=== PATIENT | female | born 1935 | race Caucasian/White ===

== ENCOUNTER 2016-10-02 13:54 | Emergency (ER) | payer OTHER, BC ==
[2016-10-02 14:04] VITALS: BP 147/70; PULSE 70; TEMP 97.4; BMI 27.4
--- NOTE | 2016-10-02 17:38 | PDOC ---
History of Present Illness - General Chief Complaint: Pain Stated Complaint: PAIN Time Seen by Provider: 10/02/16 14:51 History Source: Patient Exam Limitations: No Limitations - History of Present Illness Initial Comments: 10/02/16 17:33 CC progressive pain to left lateral calf x 3 days; no new traum; long hx problem with l hip and knee Timing/Duration: 1 week Severity: moderate Associated Symptoms: denies: chest pain, cough, nausea/vomiting, rash, shortness of breath Past History - Past Medical History Allergies/Adverse Reactions: Allergies Allergy/AdvReac Type Severity Reaction Status Date / Time Penicillins Allergy Rash Verified 10/02/16 14:04 Home Medications: Ambulatory Orders Al[place]ren Hemifumarate [Tekturna -] 150 mg PO DAILY 10/02/16 Atorvastatin Ca [Lipitor] 20 mg PO HS 10/02/16 Doxazosin Mesylate [Cardura] 1 mg PO DAILY 10/02/16 Levothyroxine [Synthroid -] 100 mcg PO DAILY 10/02/16 Metoprolol Succinate [Toprol Xl -] 50 mg PO DAILY 10/02/16 Pantoprazole Sodium 40 mg PO DAILY 10/02/16 Valsartan/Hydrochlorothiazide [Valsartan-Hctz 320-25 mg Tab] 1 each PO DAILY 09/17 GI Disorders: Yes (ACID REFLUX) HTN: Yes Thyroid Disease: Yes - Psycho/Social/Smoking Cessation Hx Anxiety: No Suicidal Ideation: No Smoking History: Never smoked Hx Alcohol Use: No Drug/Substance Use Hx: No Substance Use Type: None Review of Systems - Review of Systems Constitutional: No: Symptoms Reported, Chills, Fever, Malaise HEENTM: No: Symptoms Reported Respiratory: No: Symptoms reported, Cough, Shortness of Breath, SOB with Exertion, Wheezing Musculoskeletal: Yes: Muscle Pain. No: Joint Pain, Joint Swelling, Joint Stiffness Integumentary: No: Symptoms Reported, Erythema, Lesions Neurological: No: Symptoms reported *Physical Exam - Vital Signs Last Vital Signs Temp Pulse Resp BP Pulse Ox 97.4 F L 70 20 147/70 98 10/02/16 13:58 10/02/16 13:58 10/02/16 13:58 10/02/16 13:58 10/02/16 13:58 - Physical Exam General Appearance: Yes: Appropriately Dressed. No: Apparent Distress HEENT: positive: TMs Normal, Pharynx Normal Respiratory/Chest: positive: Lungs Clear. negative: Chest Tender Cardiovascular: positive: Regular Rhythm, Regular Rate. negative: Murmur Integumentary: positive: Normal Color, Dry, Warm, Other (mild STS to left calf; no redness; no skin breaks, no lesions). negative: Cyanotic, Erythema, Ecchymosis, Bruising Neurologic: positive: Other (N/V intact) ED Treatment Course - RADIOLOGY Radiology Studies Ordered: Category Date Time Status LEG TIB/FIB-LEFT [RAD] Stat Radiology 10/02/16 15:05 Completed DUPLEX VASCUL US-1 LEG [US] Stat Ultrasound 10/02/16 15:07 Completed Medical Decision Making - Medical Decision Making 10/02/16 17:37 will refer to local MD this week; xray notes no fxs; US= no DVT/ bakers cyst *DC/Admit/Observation/Transfer Diagnosis at time of Disposition: Pain of left calf - Discharge Dispostion Disposition: HOME Condition at time of disposition: Stable Admit: No - Patient Instructions Additional Instructions: Please follow up with local MD this week
== END 2016-10-02 17:41 | disposition home or self-care (01) ==
LOC: JERFT 13:54
DX: M79.662 Pain in left lower leg (principal); G89.29 Other chronic pain; K21.9 Gastro-esophageal reflux disease without esophagitis; I10 Essential (primary) hypertension; E07.9 Disorder of thyroid, unspecified
CPT/HCPCS: 73590-TC-LT; 93971-TC; 99281-25

== ENCOUNTER 2017-06-04 06:41 | Day surgery (SDC) | payer OTHER, BC ==
[2017-06-02 10:42] VITALS: BMI 27.4
--- NOTE | 2017-06-02 10:55 | HP ---
DATE OF ADMISSION: 06/04/2017 DATE OF SURGERY: 06/04/2017 REASON FOR ADMISSION: Left inguinal hernia. BRIEF HISTORY: This is an 81-year-old female whose history dates back approximately 2 years when she had her left hip replaced. Following that operation, it did not go well according to the patient, and she has had chronic left hip pain. She has been to various physical therapy programs, and it has gotten better. However, she still has the discomfort, and it does limit her to some degree on the left side. She ultimately underwent a CAT scan of the pelvis without contrast performed at [facility]. The CT demonstrated no evidence of loosening or periprosthetic fractures. Incidental finding is bilateral inguinal hernias, left containing large bowel without evidence of obstruction. Because of this finding, the patient did not note any acute pain but was aware that she had occasional discomfort in the left groin region. She also notices now a lump in the left groin which occasionally causes her discomfort. She has had no nausea. No vomiting. No change in bowel habits. PAST MEDICAL HISTORY: Significant for hypertension, hypercholesterolemia. She has reflux disease, hypothyroidism. PAST SURGICAL HISTORY: She has had several cesareans, and she has had a hysterectomy in 1983. She has had her hip replaced on the right in 2012. The one on the left was in 2014. She has had cataract surgery in the early . ALLERGIES: PENICILLIN. MEDICATIONS: 1. Valsartan. 2. Metoprolol. 3. Spironolactone. SOCIAL HISTORY: Patient does not smoke or drink. PHYSICAL EXAMINATION: Lungs: Clear. Heart: Regular rate and rhythm. Abdomen: Soft, nontender, nondistended. She has a very well-healed Pfannenstiel scar. There is no evidence of herniation in the Pfannenstiel scar. However, the exam is very limited due to the patient's body habitus. She is fairly chubby in the groin region and lower abdomen. On the left side, in the supine position, there is a protrusion that is appreciated with Valsalva maneuvers close to the pubic tubercle, which would be consistent with the CT finding of her left inguinal hernia. There is no such contralateral finding on the right side. There is no pubic tubercle tenderness bilaterally. She has no point tenderness in either groin. No obvious adenopathy. IMPRESSION/PLAN: Bilateral inguinal hernias. This is an 81-year-old female who has chronic left hip pain which she underwent a CT scan of the abdomen and pelvis for. The CT demonstrated 2 inguinal hernias. However, the one on the left was larger and contained large bowel without evidence of obstruction. The hernia on the left is palpable on physical examination, and based on her history, she is symptomatic from this. We have discussed the pros and cons of performing a laparoscopic versus open procedure, and given her history of previous C-sections and hysterectomy via Pfannenstiel, I think she is not a very good candidate for a laparoscopic approach (in a TEP fashion) and would require a TAAP (transabdominal approach). Reviewing this patient's age and her symptoms, I think she is best approached not laparoscopically, but actually in an open fashion and addressing only the left which is clinically palpable. The left hernia should be repaired in an open fashion primarily, and if at the time of surgery her inguinal floor is completely frayed, I will then use mesh. I will try my best not to place any mesh in this 81-year-old patient. The indications, alternatives, and complications of the various procedures have been discussed at length. Questions have been answered, and the patient understands especially that if we do this in an open fashion without mesh, her recurrence rates are higher. However, that is not necessarily a bad thing, and she would avoid issues with potential mesh complications. She understands very clearly and wants to proceed. YUKI VICENTE M.D. [id number] cc: Wilber Tang MD, phone number [phone] Dr. Sullivan, phone number [phone]
[2017-06-04] MEDS ORDERED: BUPIVACAINE HCL/PF 0.5% (5MG/ML) 10 ML VIAL ONE (07:23)
[2017-06-04] MEDS ORDERED: ROPIVACAINE HCL 0.5% 30ML VIAL ONE (07:55)
[2017-06-04] MEDS ORDERED: ceFAZolin SODIUM 1 GM VIAL ONE (07:55)
[2017-06-04] MEDS ORDERED: MIDAZOLAM HCL 2 MG/2 ML SINGLE DOSE VIAL ONE ×3 (07:56→08:17)
[2017-06-04] MEDS ORDERED: PROPOFOL 20 ML ONE ×2 (08:17→09:09)
[2017-06-04] MEDS ORDERED: LIDOCAINE HCL/PF 2% SDV 5ML VIAL ONE (08:19)
[2017-06-04] MEDS ORDERED: ceFAZolin SODIUM 1 GM VIAL IVPB ONE (09:04)
[2017-06-04] MEDS ORDERED: oxyCODONE HCL 5 MG TABLET PO PRN ×2 (09:06)
[2017-06-04] MEDS ORDERED: ONDANSETRON 4 MG/2 ML VIAL IVPUSH PRN (09:06)
[2017-06-04] MEDS ORDERED: LIDOCAINE HCL 1%, 10 MG/ML (50 mL VIAL) IJ ONE (09:11)
[2017-06-04] MEDS ORDERED: LACTATED RINGERS SOLUTION 1,000 ML IV SCH (09:15)
[2017-06-04] MEDS ORDERED: SODIUM CHLORIDE 0.9% P/F 10 ML VIAL IJ ONE (10:08)
[2017-06-04] MEDS ORDERED: ePHEDrine SULFATE 50 MG/1 ML AMPULE ONE (10:08)
[2017-06-04] MEDS ORDERED: ONDANSETRON 4 MG/2 ML VIAL ONE ×2 (11:19→11:20)
--- NOTE | 2017-06-04 11:23 | OP ---
DATE OF OPERATION: 06/04/2017 PREOPERATIVE DIAGNOSIS: Left inguinal hernia. POSTOPERATIVE DIAGNOSIS: Left inguinal hernia. PROCEDURE: Open repair left inguinal hernia with 8-cm intermediate closure, hernia repaired with mesh. SURGEON: Suleman Vicente MD HYDROELECTRIC PLANT OPERATOR: David Gomez DO ANESTHESIA: Mohamud Lee MD (MAC/1% lidocaine without epinephrine, approximately 20 mL). ESTIMATED BLOOD LOSS: Minimal. SPECIMENS: Round ligament and hernia sac. INDICATIONS/PROCEDURE: This is an 81-year-old female symptomatic from a left inguinal hernia. CT consistent with bowel in the left inguinal hernia. She is here for operative repair. Patient was identified and appropriately positioned on the operating room table. After good IV sedation, the area was prepped and draped in the usual sterile fashion with ChloraPrep. Lidocaine 1% without epinephrine was used for anesthesia, approximately 20 mL. An 8-cm incision overlying the right inguinal region was made deep in the subcutaneous tissue. Scarpas was divided sharply. The fascia of the external oblique opened in the direction of its fibers. The ilioinguinal nerve identified and noted to be very atrophic. It was reflected laterally. The round ligament and hernia was isolated at the pubic tubercle. The round ligament was from the hernia sac. This patient clearly had an indirect inguinal hernia. The round ligament was clamped, divided, and handed off as specimen round ligament. The sac opened. Patient noted to have a slider. Sac was then oversewn and closed down to the level of the sliding component. The sac was then excised, and the sac reduced back into the preperitoneal space. A Marlex mesh plug was placed into the preperitoneal space and floor and anchored with interrupted 0 Prolene sutures. The inguinal floor reconstructed in 2 layers of running 2-0 Prolene suture, and the conjoint tendon, the oblique musculature overlying the inguinal floor was then reapproximated to the inferior edge of the inguinal ligament with interrupted 0 Prolene sutures. The space irrigated. The operative field was examined, noted to be hemostatic. The inguinal nerve returned to its anatomic position. The fascia of the external oblique reapproximated with running 3-0 Vicryl suture, and all skin closed with Biosyn followed by Dermabond. At the conclusion of this case, sponge and instrument counts were correct. ATTESTATION: Brief operative note handwritten on the preprinted form. [facility] queried prior to giving any narcotics. SULEMAN VICENTE M.D. [id number] cc: Wilber Tang MD, and Dr. Jessy CAN
[2017-06-04 11:45] VITALS: TEMP 97.8
[2017-06-04 11:57] VITALS: BP 148/75; PULSE 73
[2017-06-04] MEDS ORDERED: oxyCODONE HCL 5 MG TABLET ONE (12:46)
--- NOTE | 2017-06-05 15:19 | PATH ---
Surgical Pathology Report Patient Name: ISIDRO CHAUHAN [facility]. Rec. #: [id number] /Age/Gender: 1935 (Age: 81) / F Account: [id number] Location: [facility] Taken: 06/04/2017 Received: 06/04/2017 Reported: 06/05/2017 Physicians: Suleman Storm Specimen(s) Received A: HERNIA SAC B: ROUND LIGAMENT Clinical History Left inguinal hernia Final Diagnosis A. DESIGNATED HERNIA SAC, EXCISION: PORTIONS OF BLOOD VESSEL, PERIPHERAL NERVE, AND SMOOTH MUSCLE CONSISTENT WITH PORTIONS OF ROUND LIGAMENT. B. DESIGNATED ROUND LIGAMENT, EXCISION: FIBROMEMBRANOUS TISSUE CONSISTENT WITH HERNIA SAC. Electronically Signed Chapito Núñez M.D. Gross Description A. Received in formalin labeled "hernia sac," is a 2.5 x 2.5 x 0.4 cm pagan-pink, irregular portion of fibromembranous tissue with minimal attached fat and blood clot. The specimen is serially sectioned and entirely submitted in one cassette. B. Received in formalin labeled "round ligament," is a 2.8 x 1.4 x 0.8 cm irregular portion of fibromembranous tissue with attached fat. No definite ligament is identified. The specimen is serially sectioned and branch service representative sections are submitted in one cassette. 06/04/201706/04/2017
== END 2017-06-04 14:00 | disposition home or self-care (01) ==
LOC: JASU-SURG 06:41
PROVIDERS: ATTEND Surgery
PROC: 0YU60JZ Supplement Left Inguinal Region with Synthetic Substitute, Open Approach (ICD-10-PCS; principal; 2017-06-04 09:00)
DX: K40.90 Unilateral inguinal hernia, without obstruction or gangrene, not specified as recurrent (principal)
CPT/HCPCS: 88302-TC; 94760

== ENCOUNTER 2017-09-23 06:59 | Day surgery (SDC) | payer OTHER, BC ==
[2017-09-22 12:11] VITALS: BMI 27.1
[2017-09-23 08:24] VITALS: TEMP 97.5
[2017-09-23 09:56] VITALS: BP 140/60; PULSE 58
--- NOTE | 2017-09-24 11:31 | PATH ---
Surgical Pathology Report Patient Name: ISIDRO CHAUHAN [facility]. Rec. #: [id number] /Age/Gender: 1935 (Age: 81) / F Account: [id number] Location: [facility] Taken: 09/23/2017 Received: 09/23/2017 Reported: 09/24/2017 Physicians: Lonnie Jolley M.D. Specimen(s) Received BX MID ESOPHAGUS Clinical History Preoperative diagnosis: Dysphagia Postoperative diagnosis: Cricopharyngeal achalasia Final Diagnosis MID ESOPHAGUS, BIOPSY: SQUAMOUS MUCOSA WITH FOCAL MILD VASCULAR CONGESTION. Electronically Signed Deepthi Hawkins M.D. Gross Description Received in formalin, labeled "biopsy midesophagus" are 2 apgan, irregular portions of soft tissue measuring 0.3 and 0.4 cm. in greatest dimension. The specimens are submitted in toto in one cassette. /09/23/201709/23/2017
== END 2017-09-23 10:15 | disposition home or self-care (01) ==
LOC: JASU-ENDO 06:59
PROVIDERS: ATTEND Internal Medicine Gastroenterology
PROC: 0DB28ZX Excision of Middle Esophagus, Via Natural or Artificial Opening Endoscopic, Diagnostic (ICD-10-PCS; 2017-09-23)
PROC: 0D738ZZ Dilation of Lower Esophagus, Via Natural or Artificial Opening Endoscopic (ICD-10-PCS; principal; 2017-09-23 08:00)
DX: R13.10 Dysphagia, unspecified (principal); K22.2 Esophageal obstruction; K44.9 Diaphragmatic hernia without obstruction or gangrene

== ENCOUNTER 2019-10-07 15:18 | Inpatient (IN) | payer OTHER, BC ==
--- NOTE | 2019-10-07 16:21 | PDOC ---
History of Present Illness - General Chief Complaint: Weakness Stated Complaint: DIFFICULTY WALKING Time Seen by Provider: 10/07/19 16:07 - History of Present Illness Initial Comments: 10/07/19 16:29 Pt is an 83y/o female with HTN, hypothyroidism, and b/l hip replacements who presents with difficulty walking and HTN. She was started on Cymbalta on 10/02/19 for b/l foot paresthesias (worse on left). She reports not feeling well after taking it and took the next day off. She resumed for 2 days and felt nauseous with loss of appetite and felt weak on her left side. She was seen in the ED with elevated BP and was discharged. She continued to feel bad and today felt generalized weakness to the point she was unable to walk. She denies LOC, dizziness, chest pain, shortness of breath. Pt was hyponatremic at previous visit 124. She also reports recently being on Lasix for 1 month and stopped in the last 1-2 weeks. cards: Kitty neuro: Joie Past History - Past Medical History Allergies/Adverse Reactions: Allergies Allergy/AdvReac Type Severity Reaction Status Date / Time Penicillins Allergy Rash Verified 10/07/19 15:45 Home Medications: Ambulatory Orders Metoprolol Succinate [Toprol XL -] 50 mg PO BID 10/02/16 Levothyroxine [Synthroid -] 100 mcg PO DAILY 06/02/17 Duloxetine HCl [Cymbalta -] 20 mg PO DAILY 10/05/19 Famotidine 20 mg PO DAILY 10/05/19 Hydralazine HCl 10 mg PO BID 10/05/19 Magnesium Malate 2 gm PO DAILY 10/05/19 Telmisartan 80 mg PO DAILY 10/05/19 Anemia: No Asthma: No Cancer: No Cardiac Disorders: No CVA: No COPD: No CHF: No Dementia: No Diabetes: No GI Disorders: Yes (GERD) Disorders: No HTN: Yes Hypercholesterolemia: Yes Liver Disease: No Seizures: No Thyroid Disease: Yes (HYPOTHYROID) - Surgical History Abdominal Surgery: Yes (HERNIA REPAIR 2017) Orthopedic Surgery: Yes (ELI HIP REPLACEMENT-CAN'T LIFT LEFT LEG) - Psycho Social/Smoking Cessation Hx Smoking History: Unknown if ever smoked Hx Alcohol Use: No Drug/Substance Use Hx: No Substance Use Type: None Hx Substance Use Treatment: No Review of Systems - Review of Systems Constitutional: Yes: Loss of Appetite. No: Diaphoresis Respiratory: No: Shortness of Breath Cardiac (ROS): No: Chest Pain ABD/GI: Yes: Nausea. No: Vomiting Neurological: Yes: Weakness, Dizziness. No: Headache *Physical Exam - Vital Signs Last Vital Signs Temp Pulse Resp BP Pulse Ox 98.2 F 84 18 195/85 H 98 10/07/19 15:20 10/07/19 15:20 10/07/19 15:20 10/07/19 15:20 10/07/19 15:20 - Physical Exam General Appearance: Yes: Nourished, Appropriately Dressed. No: Apparent Distress HEENT: positive: EOMI, THALIA Neck: positive: Trachea midline Respiratory/Chest: positive: Lungs Clear Cardiovascular: positive: Regular Rhythm, Regular Rate. negative: Murmur Gastrointestinal/Abdominal: positive: Increased Bowel Sounds. negative: Tender Extremity: positive: Swelling (b/l feet) Neurologic: positive: aadc plans staff officer II-XII NML intact, Fully Oriented, Alert, Normal Mood/ Affect, Other (left LE 3/5 knee flexion/extension, dorsal and plantar flexion; other extremities 5/5 strength) ED Treatment Course - LABORATORY CBC & Chemistry Diagram: 10/09/19 08:25 10/09/19 06:00 Medical Decision Making - Medical Decision Making 10/07/19 16:44 Pt is an 83y/o female with HTN, hypothyroidism, and b/l hip replacements who presents with difficulty walking and HTN. She was started on Cymbalta on 10/02/19 for b/l foot paresthesias (worse on left). She reports not feeling well after taking it and took the next day off. She resumed for 2 days and felt nauseous with loss of appetite and felt weak on her left side. She was seen in the ED with elevated BP. ddx: TIA, stroke, neuropathy, hypertensive urgency, acute CHF exacerbation, hyper/hypothyroidism orders: CBC, CMP, PT/PTT, trop, TSH, CXR, EKG, CT head 10/07/19 17:51 CBC unremarkable 10/07/19 18:24 Na 123 (124 2 days ago, no baseline in system to compare to)- could be cause of weakness transaminitis and elevated CK, normal trop TSH 5.83 Discharge - Discharge Information Problems reviewed: Yes Clinical Impression/Diagnosis: Hyponatremia, Inability to ambulate due to ankle or foot Condition: Stable - Follow up/Referral - Patient Discharge Instructions - Post Discharge Activity
--- NOTE | 2019-10-07 16:35 | PDOC ---
Attending Attestation - Resident Resident Name: MagalyivonneSanam sher - ED Attending Attestation I have performed the following: I have examined & evaluated the patient, The case was reviewed & discussed with the resident, I agree w/resident's findings & plan, Exceptions are as noted - HPI HPI: 10/07/19 18:44 83yo female with b/l leg weakness that has been worsening for the last week, unable to ambulate today. Pt was started on Cymbalta Friday and didn't like the feel of the cymbalta. Pt was seen 2 days ago because of hte side effects and dc to home. Today pt with generalized weakness. Pt denies cp/sob. No cough. No abd pain. No n/v/d. No dysuria. Pt with LE swelling - has been off lasix for a few days- only had a month of lasix therapy for LE swelling. PMD. Dr Sullivan and Cards Dr. Tang and Neuro Dr. Salter. - Physicial Exam PE: 10/07/19 18:48 Gen: aaox3, nad heart: +s1s2 reg lungs: cta b/l abd: soft, nt/nd +bs ext: 2+ pitting edema to b/l LE, pulses intact neuro: cn ii-xii grossly intact, 4/5 weakness to b/l LE, muscle strength 5/5 UE , sensation intact - Medical Decision Making 10/07/19 18:53 a/p: 83yo female with generalized weakness, inability to ambulate, poss polypharmacy/adverse drug reaction -pt with an adverse drug reaction earlier this week to cymbalta -pt with worsening LE edema and weakness -no f/c -had borderline low sodium 2 days ago to 126 -will repeat labs, head ct, ekg, cxr -pt will most likely need admission for bp control and hyponatremia treatment 10/07/19 18:57 repeat sodium 123 pt will need admission 10/07/19 19:03 nighttime bp meds given 10/07/19 19:[address] neg 10/07/19 19:21 resident discussed the case with doc covering teri Heart Score/ECG Review - ECG Intrepretation Comment:: 10/07/19 19:05 sinus at 74, nl axis, q waves inferior leads which are age indeterminate, q waves anterior leads which are age indeterminate, abnl ekg
[2019-10-07 17:22] LABS: BASO % 0.7 % (0-2.0); EOS % 0.8 % (0-4.5); HEMATOCRIT 36.8 % (32.4-45.2); HEMOGLOBIN 12.9 GM/dL (10.7-15.3); LYMPH % 13.6 % (8-40); MCH 31.2 pg (25.7-33.7); MCHC 35.1 g/dl (32.0-36.0); MEAN CELL VOLUME 88.9 fl (80-96); MEAN PLT VOLUME 11.2 fl (7.5-11.1); MONO % 10.9 % (3.8-10.2); PLATELET COUNT 209 K/MM3 (134-434); RBC 4.14 M/mm3 (3.60-5.2); RDW 13.4 % (11.6-15.6); WHITE BLOOD COUNT 9.1 K/mm3 (4.0-10.0)
[2019-10-07 17:35] LABS: INR 0.86 (0.83-1.09); PROTHROMBIN TIME (PATIENT) 10.1 SEC (9.7-13.0)
[2019-10-07 17:37] LABS: ACTIVATED PTT 30.3 SECONDS (25.2-36.5)
[2019-10-07 17:59] LABS: BILIRUBIN,TOTAL 0.6 mg/dL (0.2-1); BLOOD UREA NITROGEN 17.1 mg/dL (7-18); MAGNESIUM 2.4 mg/dL (1.8-2.4); TOT PROT 7.6 g/dl (6.4-8.2)
[2019-10-07 18:49] LABS: N-TERMINAL BNP 701.2 pg/ml (5-450)
--- NOTE | 2019-10-07 19:01 | PDOC ---
*Physical Exam - Vital Signs Last Vital Signs Temp Pulse Resp BP Pulse Ox 98.2 F 74 16 202/86 H 98 10/07/19 15:20 10/07/19 17:05 10/07/19 17:05 10/07/19 17:05 10/07/19 17:05 - Physical Exam General Appearance: Yes: Nourished, Appropriately Dressed. No: Apparent Distress HEENT: positive: EOMI, THALIA, Normal ENT Inspection, Normal Voice Neck: positive: Supple Respiratory/Chest: positive: Lungs Clear Cardiovascular: positive: Regular Rhythm, Regular Rate, S1, S2 Vascular Pulses: Dorsalis-Pedis (R): 2+, Doralis-Pedis (L): 2+ Gastrointestinal/Abdominal: positive: Soft Rectal Exam: positive: deferred Lymphatic: negative: Adenopathy Musculoskeletal: positive: Normal Inspection. negative: CVA Tenderness Extremity: positive: Normal Capillary Refill, Pedal Edema (1+ ). negative: Normal Inspection, Normal Range of Motion Integumentary: positive: Normal Color, Dry, Warm Neurologic: positive: menagerie superintendent II-XII NML intact, Fully Oriented, Alert, Normal Mood/ Affect, Normal Response ED Treatment Course - LABORATORY CBC & Chemistry Diagram: 10/07/19 16:30 10/07/19 16:30 - ADDITIONAL ORDERS Additional order review: Laboratory Results 10/07/19 10/07/19 10/07/19 16:30 16:30 16:30 PT with INR 10.10 INR 0.86 PTT (Actin FS) 30.3 Sodium 123 L Potassium 4.0 Chloride 87 L Carbon Dioxide 25 Anion Gap 10 BUN 17.1 Creatinine 1.0 Est GFR (CKD-EPI)AfAm 59.91 Est GFR (CKD-EPI)NonAf 51.69 Random Glucose 115 H Calcium 10.0 Magnesium 2.4 Total Bilirubin 0.6 AST 40 H ALT 45 Alkaline Phosphatase 162 H Creatine Kinase 254 H Creatine Kinase Index 1.8 CK-MB (CK-2) 4.7 H Troponin I < 0.02 B-Natriuretic Peptide 701.2 H Total Protein 7.6 Albumin 4.0 TSH 5.83 H 10/07/19 16:30 RBC 4.14 MCV 88.9 MCHC 35.1 RDW 13.4 MPV 11.2 H Neutrophils % 74.0 Lymphocytes % 13.6 Monocytes % 10.9 H Eosinophils % 0.8 Basophils % 0.7 - Medications Given in the ED: ED Medications Discontinued Medications Generic Name Dose Route Start Last Admin Trade Name Erikq PRN Reason Stop Dose Admin Metoprolol Succinate 50 mg 10/07/19 18:50 10/07/19 18:58 Toprol Xl - PO 10/07/19 18:51 50 mg ONCE ONE Administration Medical Decision Making - Medical Decision Making - Patient was sent to hospital by Dr. Salter Patient signed out to me from Dr. Nesbitt pending CXR and admission to hospital for hyponatremia correction and new onset inability to ambulate Sodium: 124 Dr. De Jesus accepts patient for admission Discharge - Discharge Information Problems reviewed: Yes Clinical Impression/Diagnosis: Hyponatremia, Inability to ambulate due to ankle or foot Condition: Stable - Admission Yes - Follow up/Referral Referrals: Erin Sullivan [Primary Care Provider] - - Patient Discharge Instructions - Post Discharge Activity
--- NOTE | 2019-10-07 20:23 | HP ---
Admitting History and Physical - Admission Chief Complaint: Acute difficulty in walking, acute generalized muscle weakness , acute paresthesia of both feet. History of Present Illness: This 83 yr old w/f with hx of HTN, hypothyroidism, s/p bilateral hip replacement , s/p total hysterectomy with bilateral salpingo-oophorectomy, left inguinal hernia repair admitted via ER with acute hyponatremia, acute difficulty in walking, acute generalized muscle weakness, and paresthesias of both feet. 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) Cardiovascular: No: AFIB, Aneurysm, Aortic Insufficiency, Aortic Stenosis, CAD, CHF, Deep Vein Thrombosis, HTN, Hyperlipdemia, [place], Mitral Insufficiency, Mitral Stenosis, Murmur, Pulmonary Hypertension, Other Pulmonary: No: Asthma, Bronchitis, Cancer, COPD, O2 Dependent, Pneumonia, Previously Intubated, Pulmonary Embolus, Pulmonary Fibrosis, Sleep Apnea, Other Gastrointestinal: Yes: Gastritis Hepatobiliary: No: Cirrhosis, Cholelithiasis, Cholecystitis, Choledocholithiasis , Hepatitis A, Hepatitis B, Hepatitis C, Other Renal/: No: Renal Failure, Renal Inusuff, BPH, Cancer, Hematuria, Hemodialysis , Neurogenic Bladder, Renal Calculi, UTI, Other Reproductive: Yes: Fibroids Heme/Onc: No: Anemia, B12 Deficiency, Bleeding Disorder, Cancer, Current Chemotherapy, Current Radiation Therapy, Hemochromatosis, Hypercoaguable State, Myeloproliferative Synd, Sickle Cell Disease, Sickle Cell Trait, Thrombocytopenia, Other Infectious Disease: No: AIDS, C-Diff, Herpes Zoster, HIV, MRSA, STD's, Tuberculosis, VREF, Other Psych: No: Addictions, Anxiety, Bipolar, Depression, Panic, Psychosis, Schizophrenia, Other Rheumatology: No: Fibromyalgia, Gout, Lupus, Rheumatoid Arthritis, Sarcoidosis, Vasculitis, Other ENT: No: Allergic Rhinitis, Sinusitis, Other Endocrine: Yes: Hypothyroidism Dermatology: No: Basal Cell, Cellulitis, Eczema, Melanoma, Psoriasis, Squamous Cell, Other - Past Surgical History Past Surgical History: Yes: Cataract Removal, Hernia Repair, Joint Replacement ( hips), Oopherectomy, Upper Endoscopy - Smoking History Smoking history: Never smoked Have you smoked in the past 12 months: No - Alcohol/Substance Use Hx Alcohol Use: No History of Substance Use: reports: None Home Medications - Allergies Allergies/Adverse Reactions: Allergies Allergy/AdvReac Type Severity Reaction Status Date / Time Penicillins Allergy Rash Verified 10/07/19 15:45 - Home Medications Home Medications: Ambulatory Orders Metoprolol Succinate [Toprol XL -] 50 mg PO BID 10/02/16 Levothyroxine [Synthroid -] 100 mcg PO DAILY 06/02/17 Duloxetine HCl [Cymbalta -] 20 mg PO DAILY 10/05/19 Famotidine 20 mg PO DAILY 10/05/19 Hydralazine HCl 10 mg PO BID 10/05/19 Magnesium Malate 2 gm PO DAILY 10/05/19 Telmisartan 80 mg PO DAILY 10/05/19 Family Medical History Family Hx Diabetes: Father Family Hx Dementia: Mother Review of Systems - Review of Systems Constitutional: reports: Weakness Eyes: reports: No Symptoms HENT: reports: No Symptoms Neck: reports: No Symptoms Cardiovascular: reports: No Symptoms Respiratory: reports: No Symptoms Gastrointestinal: reports: No Symptoms Genitourinary: reports: No Symptoms Breasts: reports: No Symptoms Reported Musculoskeletal: reports: Muscle Weakness Integumentary: reports: No Symptoms Neurological: reports: Parasthesia, Unsteady Gait, Weakness Endocrine: reports: No Symptoms Hematology/Lymphatic: reports: No Symptoms Psychiatric: reports: No Symptoms Physical Examination Vital Signs: Vital Signs Temperature 97.3 F L 10/07/19 19:14 Pulse Rate 74 10/07/19 19:14 Respiratory Rate 12 10/07/19 19:14 Blood Pressure 177/88 H 10/07/19 19:14 O2 Sat by Pulse Oximetry (%) 96 10/07/19 19:14 Constitutional: Yes: Well Nourished, No Distress, Calm Eyes: Yes: Conjunctiva Clear, EOM Intact HENT: Yes: Atraumatic, Normocephalic Neck: Yes: Supple, Trachea Midline Cardiovascular: Yes: Regular Rate and Rhythm Respiratory: Yes: Regular, CTA Bilaterally Gastrointestinal: Yes: Normal Bowel Sounds, Soft ...Rectal Exam: Yes: Deferred Renal/: Yes: WNL Breast(s): Yes: WNL Musculoskeletal: Yes: Muscle Weakness Edema: Yes Edema: LLE: 2+, RLE: 2+ Peripheral Pulses WNL: Yes Integumentary: Yes: WNL Neurological: Yes: Alert, Paresthesia, Unsteady Gait, Weakness ...Motor Strength: WNL Psychiatric: Yes: WNL Labs: CBC, BMP 10/07/19 16:30 10/07/19 16:30 Imaging - Results Chest X-ray: Report Reviewed Cat Scan: Report Reviewed Other: Report Reviewed (Lab data reviewed) Problem List - Problems (1) Hyponatremia Code(s): E87.1 - HYPO-OSMOLALITY AND HYPONATREMIA (2) Inability to ambulate due to ankle or foot Code(s): R26.2 - DIFFICULTY IN WALKING, NOT ELSEWHERE CLASSIFIED (3) High blood pressure Code(s): I10 - ESSENTIAL (PRIMARY) HYPERTENSION Assessment/Plan Assessment/plan: acute hyponatremia, acute difficulty in walking, acute generalized muscle weakness, paresthesias of feet; Fluid restriction, sodium chloride 500mg po daily, DVT prophylaxis, physical therapy, consult to Neurology.
[2019-10-07] MEDS ORDERED: hydrALAZINE HCL 10 MG TABLET PO SCH (22:00)
[2019-10-07] MEDS: SODIUM CHLORIDE 1 GM TABLET PO SCH (23:13)
[2019-10-07] MEDS: ENOXAPARIN NA (PORCINE) 40 MG/0.4 ML DISP.SYRIN SQ SCH ×2 (23:14→23:25)
[2019-10-08] MEDS ORDERED: hydrALAZINE HCL 10 MG TABLET PO SCH ×2 (04:23→10:00)
[2019-10-08] MEDS: LEVOTHYROXINE NA 100 MCG TABLET (FP) PO SCH (06:12)
[2019-10-08 07:18] LABS: ALBUMIN 3.2 g/dl (3.4-5.0); BILIRUBIN,TOTAL 0.9 mg/dL (0.2-1); CALCIUM 9.2 mg/dL (8.5-10.1); CREATININE 0.8 mg/dL (0.55-1.3); POTASSIUM 3.5 mmol/L (3.5-5.1); TOT PROT 6.3 g/dl (6.4-8.2)
--- NOTE | 2019-10-08 08:55 | CONSULT ---
Consult - text type - Consultation Consultation Note: Neurology - Admission Chief Complaint: Acute difficulty in walking, acute generalized muscle weakness , acute paresthesia of both feet. History of Present Illness: 83 yr old with hx of HTN, hypothyroidism, s/p bilateral hip replacement, s/p total hysterectomy with bilateral salpingo-oophorectomy, left inguinal hernia repair presented to the ER with difficulty walking and HTN. She had presented to me in the office for complaints of neuropathic discomfort in her lower extremities. She has indicated prior orthopedic surgery with possible nerve being "severed". She indicated heaviness in her lower extremities with difficulty ambulating. We had started her on Cymbalta on 10/02/19 for b/l foot paresthesias (worse on left). She reported not feeling well after taking it and took the next day off. She resumed for 2 days and felt nauseous with loss of appetite and felt weak on her left side. Of note, her sodium was reduced to 124 and reportedly had presented to the ER and discharged. She returns ddue to difficulty with ambulation and had contacted our office indicating inability to get out of bed. Ct of head performed and showed no acute intracranial pathology. I was contacted by the primary care physician and we have been discussing her case. One thought was nneuropathy possibly from use of hydralazine which is mentioned in case report though seems less likely. We'll defer to cardiology regarding blood pressure medications and possibly trying alternative medication. I did reach out to Dr. Tran who had referred the patient to for EMG/nerve conduction studies last night and informed him of the case and requested EMG/nerve conduction study be completed in the hospital and he was in agreement. I explained to the patient that this would likely be performed today. At this time, we'll try low-dose gabapentin just 100 mg 3 times a day to see if there is sufficient relief in her symptoms. However, it seems that she requires more physical therapy and possibly short-term rehabilitation more so than treatment of underlying neuropathy. 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) Cardiovascular: No: AFIB, Aneurysm, Aortic Insufficiency, Aortic Stenosis, CAD, CHF, Deep Vein Thrombosis, HTN, Hyperlipdemia, [place], Mitral Insufficiency, Mitral Stenosis, Murmur, Pulmonary Hypertension, Other Pulmonary: No: Asthma, Bronchitis, Cancer, COPD, O2 Dependent, Pneumonia, Previously Intubated, Pulmonary Embolus, Pulmonary Fibrosis, Sleep Apnea, Other Gastrointestinal: Yes: Gastritis Hepatobiliary: No: Cirrhosis, Cholelithiasis, Cholecystitis, Choledocholithiasis , Hepatitis A, Hepatitis B, Hepatitis C, Other Renal/: No: Renal Failure, Renal Inusuff, BPH, Cancer, Hematuria, Hemodialysis , Neurogenic Bladder, Renal Calculi, UTI, Other Reproductive: Yes: Fibroids Heme/Onc: No: Anemia, B12 Deficiency, Bleeding Disorder, Cancer, Current Chemotherapy, Current Radiation Therapy, Hemochromatosis, Hypercoaguable State, Myeloproliferative Synd, Sickle Cell Disease, Sickle Cell Trait, Thrombocytopenia, Other Infectious Disease: No: AIDS, C-Diff, Herpes Zoster, HIV, MRSA, STD's, Tuberculosis, VREF, Other Psych: No: Addictions, Anxiety, Bipolar, Depression, Panic, Psychosis, Schizophrenia, Other Rheumatology: No: Fibromyalgia, Gout, Lupus, Rheumatoid Arthritis, Sarcoidosis, Vasculitis, Other ENT: No: Allergic Rhinitis, Sinusitis, Other Endocrine: Yes: Hypothyroidism Dermatology: No: Basal Cell, Cellulitis, Eczema, Melanoma, Psoriasis, Squamous Cell, Other - Past Surgical History Past Surgical History: Yes: Cataract Removal, Hernia Repair, Joint Replacement ( hips), Oopherectomy, Upper Endoscopy -Smoking History Smoking history: Never smoked Have you smoked in the past 12 months: No - Alcohol/Substance Use Hx Alcohol Use: No History of Substance Use: reports: None Family Medical History Family Hx Diabetes: Father Family Hx Dementia: Mother Review of Systems - Review of Systems Constitutional: reports: Weakness Eyes: reports: No Symptoms HENT: reports: No Symptoms Neck: reports: No Symptoms Cardiovascular: reports: No Symptoms Respiratory: reports: No Symptoms Gastrointestinal: reports: No Symptoms Genitourinary: reports: No Symptoms Breasts: reports: No Symptoms Reported Musculoskeletal: reports: Muscle Weakness Integumentary: reports: No Symptoms Neurological: reports: Parasthesia, Unsteady Gait, Weakness Endocrine: reports: No Symptoms Hematology/Lymphatic: reports: No Symptoms Psychiatric: reports: No Symptoms Home Medications - Allergies Allergies/Adverse Reactions: Allergies Allergy/AdvReac Type Severity Reaction Status Date / Time Penicillins Allergy Rash Verified 10/07/19 15:45 - Home Medications Home Medications: Ambulatory Orders Metoprolol Succinate [Toprol XL -] 50 mg PO BID 10/02/16 Levothyroxine [Synthroid -] 100 mcg PO DAILY 06/02/17 Duloxetine HCl [Cymbalta -] 20 mg PO DAILY 10/05/19 Famotidine 20 mg PO DAILY 10/05/19 Hydralazine HCl 10 mg PO BID 10/05/19 Magnesium Malate 2 gm PO DAILY 10/05/19 Telmisartan 80 mg PO DAILY 10/05/19 Active Medications Enoxaparin Sodium (Lovenox -) 40 mg SQ DAILY [facility] Last Admin: 10/07/19 23:25 Dose: Not Given Famotidine (Pepcid -) 20 mg PO DAILY [facility] Hydralazine HCl (Apresoline -) 10 mg PO BID [facility] Levothyroxine Sodium (Synthroid -) 100 mcg PO DAILY@0700 [facility] Last Admin: 10/08/19 06:12 Dose: 100 mcg Losartan Potassium (Cozaar -) 50 mg PO DAILY [facility] Metoprolol Succinate (Toprol Xl -) 50 mg PO BID [facility] Last Admin: 10/07/19 23:16 Dose: 50 mg Sodium Chloride (Sodium Chloride Tablet -) 0.5 gm PO DAILY [facility] Last Admin: 10/07/19 23:13 Dose: 0.5 gm Physical Examination Vital Signs: Vital Signs Period Temp Pulse Resp BP Sys/[place] Pulse Ox Last 24 Hr 97.3 F-98.7 F 66-84 12-18 123-202/63-88 96-98 Constitutional: Yes: Well Nourished, No Distress, Calm Eyes: Yes: Conjunctiva Clear, EOM Intact HENT: Yes: Atraumatic, Normocephalic Neck: Yes: Supple, Trachea Midline Cardiovascular: Yes: Regular Rate and Rhythm Respiratory: Yes: Regular, CTA Bilaterally Gastrointestinal: Yes: Normal Bowel Sounds, Soft ...Rectal Exam: Yes: Deferred Renal/: Yes: WNL Breast(s): Yes: WNL Musculoskeletal: Yes: Muscle Weakness Edema: Yes Edema: LLE: 2+, RLE: 2+ Peripheral Pulses WNL: Yes Integumentary: Yes: WNL Neurological: cranial nerves intact, Decreased ppinprick and light touch in distal lower extremities, 4+/5 RLE, 5-/5 in LLE, gait deferred Labs: CBCD WBC 9.1 K/mm3 (4.0-10.0) 10/07/19 16:30 RBC 4.14 M/mm3 (3.60-5.2) 10/07/19 16:30 Hgb 12.9 GM/dL (10.7-15.3) 10/07/19 16:30 Hct 36.8 % (32.4-45.2) 10/07/19 16:30 MCV 88.9 fl (80-96) 10/07/19 16:30 MCHC 35.1 g/dl (32.0-36.0) 10/07/19 16:30 RDW 13.4 % (11.6-15.6) 10/07/19 16:30 Plt Count 209 K/MM3 (134-434) 10/07/19 16:30 MPV 11.2 fl (7.5-11.1) H 10/07/19 16:30 CMP Sodium 127 mmol/L (136-145) L 10/08/19 06:00 Potassium 3.5 mmol/L (3.5-5.1) 10/08/19 06:00 Chloride 92 mmol/L (98-107) L 10/08/19 06:00 Carbon Dioxide 27 mmol/L (21-32) 10/08/19 06:00 Anion Gap 8 MMOL/L (8-16) 10/08/19 06:00 BUN 15.0 mg/dL (7-18) 10/08/19 06:00 Creatinine 0.8 mg/dL (0.55-1.3) 10/08/19 06:00 Random Glucose 94 mg/dL (74-106) 10/08/19 06:00 Calcium 9.2 mg/dL (8.5-10.1) 10/08/19 06:00 Total Bilirubin 0.9 mg/dL (0.2-1) 10/08/19 06:00 AST 34 U/L (15-37) 10/08/19 06:00 ALT 39 U/L (13-61) 10/08/19 06:00 Alkaline Phosphatase 132 U/L (45-117) H 10/08/19 06:00 Total Protein 6.3 g/dl (6.4-8.2) L 10/08/19 06:00 Albumin 3.2 g/dl (3.4-5.0) L 10/08/19 06:00 CARDIAC ENZYMES Creatine Kinase 254 U/L (26-192) H 10/07/19 16:30 Troponin I < 0.02 ng/ml (0.00-0.05) 10/07/19 16:30 Assessment/Plan 83 yr old with hx of HTN, hypothyroidism, s/p bilateral hip replacement, s/p total hysterectomy with bilateral salpingo-oophorectomy, left inguinal hernia repair presented to the ER with difficulty walking and HTN. She had presented to me in the office for complaints of neuropathic discomfort in her lower extremities. She has indicated prior orthopedic surgery with possible nerve being "severed". She indicated heaviness in her lower extremities with difficulty ambulating. We had started her on Cymbalta on 10/02/19 for b/l foot paresthesias (worse on left). She reported not feeling well after taking it and took the next day off. She resumed for 2 days and felt nauseous with loss of appetite and felt weak on her left side. Of note, her sodium was reduced to 124 and reportedly had presented to the ER and discharged. She returns ddue to difficulty with ambulation and had contacted our office indicating inability to get out of bed. Ct of head performed and showed no acute intracranial pathology. I was contacted by the primary care physician and we have been discussing her case. One thought was nneuropathy possibly from use of hydralazine which is mentioned in case report though seems less likely. We'll defer to cardiology regarding blood pressure medications and possibly trying alternative medication. I did reach out to Dr. Tran who had referred the patient to for EMG/nerve conduction studies last night and informed him of the case and requested EMG/nerve conduction study be completed in the hospital and he was in agreement. I explained to the patient that this would likely be performed today. At this time, we'll try low-dose gabapentin just 100 mg 3 times a day to see if there is sufficient relief in her symptoms. However, it seems that she requires more physical therapy and possibly short-term rehabilitation more so than treatment of underlying neuropathy. Fall precautions needed. Monitor sodium, would not put her back on Cymbalta.
[2019-10-08] MEDS: LOSARTAN POTASSIUM 50 MG TABLET (FP) PO SCH (09:22)
[2019-10-08] MEDS: ENOXAPARIN NA (PORCINE) 40 MG/0.4 ML DISP.SYRIN SQ SCH (09:22)
[2019-10-08] MEDS: FAMOTIDINE 20 MG TABLET PO SCH (09:22)
[2019-10-08] MEDS: SODIUM CHLORIDE 1 GM TABLET PO SCH (09:23)
--- NOTE | 2019-10-08 09:34 | CON.CARD ---
Consult Consult Specialty:: Cardiology Referred by:: Dr. Humphrey Reason for Consultation:: hypertension - History of Present Illness Chief Complaint: Weakness, cannot walk History of Present Illness: 83F with chronic anxiety, chronic HTN, labile BP admitted with inability to walk. Has chronic LE neuropathy, recently started on Cymbalta of unclear etiology. ?Hydralazine induced. ROS: no CP, SOB, palps, edema Initial BP > 200, now normal Head CT negative Neuro consulted. 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) Cardio/Vascular: Yes: HTN Pulmonary: No: Asthma, Bronchitis, Cancer, COPD, O2 Dependent, Pneumonia, Previously Intubated, Pulmonary Embolus, Pulmonary Fibrosis, Sleep Apnea, Other Gastrointestinal: Yes: Gastritis Hepatobiliary: No: Cirrhosis, Cholelithiasis, Cholecystitis, Choledocholithiasis , Hepatitis A, Hepatitis B, Hepatitis C, Other Renal/: No: Renal Failure, Renal Inusuff, BPH, Cancer, Hematuria, Hemodialysis , Neurogenic Bladder, Renal Calculi, UTI, Other Infectious Disease: No: AIDS, C-Diff, Herpes Zoster, HIV, MRSA, STD's, Tuberculosis, VREF, Other Psych: No: Addictions, Anxiety, Bipolar, Depression, Panic, Psychosis, Schizophrenia, Other Rheumatology: No: Fibromyalgia, Gout, Lupus, Rheumatoid Arthritis, Sarcoidosis, Vasculitis, Other ENT: No: Allergic Rhinitis, Sinusitis, Other Endocrine: Yes: Hypothyroidism Dermatology: No: Basal Cell, Cellulitis, Eczema, Melanoma, Psoriasis, Squamous Cell, Other - Past Surgical History Past Surgical History: Yes: Cataract Removal, Hernia Repair, Joint Replacement ( hips), Oopherectomy, Upper Endoscopy - Alcohol/Substance Use Hx Alcohol Use: No History of Substance Use: reports: None - Smoking History Smoking history: Never smoked Have you smoked in the past 12 months: No - Social History History of Recent Travel: No Home Medications - Allergies Allergies/Adverse Reactions: Allergies Allergy/AdvReac Type Severity Reaction Status Date / Time Penicillins Allergy Rash Verified 10/07/19 15:45 - Home Medications Home Medications: Ambulatory Orders Metoprolol Succinate [Toprol XL -] 50 mg PO BID 10/02/16 Levothyroxine [Synthroid -] 100 mcg PO DAILY 06/02/17 Duloxetine HCl [Cymbalta -] 20 mg PO DAILY 10/05/19 Famotidine 20 mg PO DAILY 10/05/19 Hydralazine HCl 10 mg PO BID 10/05/19 Magnesium Malate 2 gm PO DAILY 10/05/19 Telmisartan 80 mg PO DAILY 10/05/19 Family Medical History Family History: Unremarkable Review of Systems - Review of Systems Constitutional: reports: Weakness Eyes: reports: No Symptoms HENT: reports: No Symptoms Neck: reports: No Symptoms Cardiovascular: reports: No Symptoms Respiratory: reports: No Symptoms Gastrointestinal: reports: No Symptoms Genitourinary: reports: No Symptoms Musculoskeletal: reports: Muscle Weakness Integumentary: reports: No Symptoms Neurological: reports: Numbness, Unsteady Gait, Weakness Endocrine: reports: No Symptoms Hematology/Lymphatic: reports: No Symptoms Psychiatric: reports: No Symptoms - Risk Factors Known Risk Factors: Yes: Hypertension Vital Signs: Vital Signs Temperature 98.4 F 10/08/19 06:27 Pulse Rate 66 10/08/19 06:27 Respiratory Rate 16 10/08/19 06:27 Blood Pressure 123/63 10/08/19 06:27 O2 Sat by Pulse Oximetry (%) 96 10/07/19 19:14 Constitutional: Yes: No Distress, Calm Respiratory: Yes: CTA Bilaterally Gastrointestinal: Yes: Soft Cardiovascular: Yes: Regular Rate and Rhythm Heart Sounds: Yes: S1, S2 Murmur: Yes: Systolic Murmur - Other Data Labs, Other Data: CBC, BMP 10/07/19 16:30 10/08/19 06:00 INR, PTT INR 0.86 (0.83-1.09) 10/07/19 16:30 Troponin, BNP 10/07/19 16:30 Troponin I < 0.02 B-Natriuretic Peptide 701.2 H Troponin, BNP 10/07/19 16:30 Troponin I < 0.02 B-Natriuretic Peptide 701.2 H Laboratory Tests 10/07/19 10/07/19 10/08/19 16:30 16:30 06:00 Sodium 123 L 127 L Creatinine 1.0 0.8 Troponin I < 0.02 B-Natriuretic Peptide 701.2 H TSH 5.83 H see HPI Imaging - Results Chest X-ray: Report Reviewed Cat Scan: Report Reviewed EKG: Image Reviewed Assessment/Plan IMP: Chronic labile HTN Chronic neuropathy of unclear etiology Hyponatremia Cardiomegaly on CXR REC: 1. Neuro evaluation 2. Management of Na+ as per PMD 3. As per Dr. Tang, d/chydralazine (as it may rarely cause neuropathy) and increase Toprol to 75BID 4. Echo
[2019-10-08] MEDS ORDERED: DULoxetine HCL 20 MG CAPSULE.DR PO SCH (10:00)
--- NOTE | 2019-10-08 13:05 | PN ---
Progress Note, Physician Chief Complaint: Patient seen and examined at the bedside, apprehensive, no labored breathing, does not appear to be in any acute distress, wants to get out of bed. History of Present Illness: This 83 yr old w/f with hx of HTN, hypothyroidism, and bilateral hip replacement admitted via ER with acute hyponatremia, acute difficulty in walking , generalized muscle weakness, and uncontrolled hypertension. - Current Medication List Current Medications: Active Medications Enoxaparin Sodium (Lovenox -) 40 mg SQ DAILY [facility] Last Admin: 10/08/19 09:22 Dose: 40 mg Famotidine (Pepcid -) 20 mg PO DAILY [facility] Last Admin: 10/08/19 09:22 Dose: 20 mg Gabapentin (Neurontin -) 100 mg PO TID [facility] Levothyroxine Sodium (Synthroid -) 100 mcg PO DAILY@0700 [facility] Last Admin: 10/08/19 06:12 Dose: 100 mcg Losartan Potassium (Cozaar -) 50 mg PO DAILY [facility] Last Admin: 10/08/19 09:22 Dose: 50 mg Metoprolol Succinate (Toprol Xl -) 75 mg PO BID [facility] Sodium Chloride (Sodium Chloride Tablet -) 0.5 gm PO DAILY [facility] Last Admin: 10/08/19 09:23 Dose: 0.5 gm - Objective Vital Signs: Vital Signs Temperature 98.4 F 10/08/19 06:27 Pulse Rate 66 10/08/19 06:27 Respiratory Rate 16 10/08/19 06:27 Blood Pressure 123/63 10/08/19 06:27 O2 Sat by Pulse Oximetry (%) 96 10/07/19 19:14 Constitutional: Yes: Well Nourished, No Distress, Anxious Eyes: Yes: Conjunctiva Clear, EOM Intact HENT: Yes: Atraumatic, Normocephalic Neck: Yes: Supple, Trachea Midline Cardiovascular: Yes: Regular Rate and Rhythm Respiratory: Yes: Regular, CTA Bilaterally Gastrointestinal: Yes: Normal Bowel Sounds, Soft ...Rectal Exam: Yes: Deferred Genitourinary: Yes: WNL Breast(s): Yes: WNL Musculoskeletal: Yes: Muscle Weakness Extremities: Yes: Other (peripheral neuropathy) Edema: Yes Edema: LLE: 2+, RLE: 2+ Peripheral Pulses WNL: Yes Integumentary: Yes: WNL Neurological: Yes: Unsteady Gait, Weakness ...Motor Strength: LLE (muscle weakness), RLE (muscle weakness) Psychiatric: Yes: Alert Labs: CBC, BMP 10/07/19 16:30 10/08/19 06:00 INR, PTT INR 0.86 (0.83-1.09) 10/07/19 16:30 - ....Imaging Other: Report Reviewed (Lab data reviewed, Cardio and Neuro notes read and appreciated) Problem List - Problems (1) Hyponatremia Code(s): E87.1 - HYPO-OSMOLALITY AND HYPONATREMIA (2) Inability to ambulate due to ankle or foot Code(s): R26.2 - DIFFICULTY IN WALKING, NOT ELSEWHERE CLASSIFIED (3) High blood pressure Code(s): I10 - ESSENTIAL (PRIMARY) HYPERTENSION (4) Peripheral neuropathy Code(s): G62.9 - POLYNEUROPATHY, UNSPECIFIED Assessment/Plan Assessment/plan: acute hyponatremia, acute generalized muscle weakness, acute difficulty in walking, neuropathy of lower extremities; fluid restriction to 500ml per 24 hours, oral sodium chloride 500mg po daily, DVT prophylaxis, physical therapy.
[2019-10-08 15:15] LABS: EPI CELLS 4.7 /HPF (0-5/HPF); HYALINE CASTS 2 /lpf (0-8); URINE APPEARANCE CLOUDY; URINE BACTERIA 5179.2 /hpf (NEGATIVE); URINE BILIRUBIN NEGATIVE (NEGATIVE); URINE COLOR YELLOW; URINE GLUCOSE (UA) NEGATIVE (NEGATIVE); URINE KETONE NEGATIVE (NEGATIVE); URINE LEUK ESTERASE 1+ (NEGATIVE); URINE NITRITE NEGATIVE (NEGATIVE); URINE PROTEIN 2+ (NEGATIVE); URINE RBC 5 /hpf (0-4); URINE UROBILINOGEN 0.2 mg/dL (0.2-1.0); URINE WBC 48 /hpf (0-5)
--- NOTE | 2019-10-08 15:41 | CONS ---
PHYSICAL MEDICINE REHABILITATION ELECTRODIAGNOSTIC CONSULTATION DATE OF CONSULTATION: 10/08/2019 HISTORY OF PRESENT ILLNESS: Patient is an 83-year-old woman with an extensive past medical history, which includes bilateral total hip replacements as well as a left foot or ankle fracture and a history of hyponatremia who was admitted with difficulty walking and weakness. Patient evidently has been having paresthesias in her distal lower extremities. She does have a degree of low back pain but was recently started on Cymbalta. Developed increasing difficulty with her ambulation and walking and was brought to [facility]. On admission, patient underwent blood work, which showed normal WBCs 9.1, hemoglobin 12.9, platelet count 209. Her chemistry, however, showed significant low sodium of 123. Her potassium was normal at 4.0, chloride 87, CO2 was 25, BUN 17.1, creatinine 1.0. TSH was elevated at 5.83. Repeat blood work on October 08 after fluid restriction showed an improvement in her sodium to 127, chloride also improved to 92. Her albumin was low at 3.2. Patient underwent a CT of the head on admission, which showed no evidence of acute intracranial pathology. There was some mild ventricular dilatation with some involutional changes. Chest x-ray was also done on admission, October 07, which showed no acute chest pathology. Patient was seen by Dr. Salter who ordered electrodiagnostic studies of the lower extremities to assess for myopathy or peripheral neuropathy. PAST MEDICAL HISTORY: As above. Hypertension, anxiety, gastritis, hyponatremia, hypothyroidism. PAST SURGICAL HISTORY: As above. Cataract surgery. SOCIAL HISTORY: Had been living in assisted living. Able to ambulate with a rolling walker until recently. Current function, she has been at bedrest since admission. REVIEW OF SYSTEMS: She does complain of generalized weakness as well as tingling in the lower extremities but no lightheadedness or dizziness. No headache, no blurry vision or double vision. No nausea, vomiting, difficulty swallowing, difficulty chewing. No chest pain or shortness of breath. No fevers or chills. No bowel or bladder incontinence, retention, or change. She has no numbness or tingling in the upper extremities. She does complain of difficulty walking and unsteadiness in her gait even prior to the onset of weakness. PHYSICAL EXAMINATION: General: Patient is seen lying in bed as well as sitting up. She is in no acute distress. HEENT: She is normocephalic and atraumatic. Her extraocular muscles appear intact. She has no obvious facial weakness. Neck: Supple. Extremities: Do show some trace to +1 edema in the distal lower limbs. No isolated calf tenderness. Her left ankle, however, is tender diffusely. Skin: No skin rash. Neuromuscular: She is awake, alert, oriented x3. Cranial nerves 2-12 grossly intact. She has fairly good strength and range in her lower extremities with some mild proximal shoulder girdle weakness. She has slightly diminished sensation in the lower extremities to cold temperature but intact pinprick except for in the distal feet. She has weakness in her hip girdle but fairly good dorsiflexion on the right side. The left side where she had an ankle injury is slightly limited. Results of EMG nerve conduction studies, please refer to report for details. OVERALL IMPRESSION: 1. Limited study due to body habitus and slight edema of the distal lower extremities. 2. Axonal sensorimotor polyneuropathy of uncertain etiology. Patient does have an elevated TSH, but this usually would take a long time to develop neurologic changes. 3. No electrodiagnostic evidence of myopathy, lumbosacral radiculopathy, demyelinating polyneuropathy. 4. Hyponatremia, improving. 5. Gait disorder. 6. History of left foot fracture. 7. History of total hip replacement. 8. Hypoalbuminemia. 9. History of hypertension. 10. Elevated body mass index. PLAN/SUGGESTION: 1. Physical therapy for mobilization, transfers, gait training, strengthening, reconditioning. 2. Neurologic follow up. 3. Workup for etiology, although 50% of axonal sensorimotor polyneuropathies are idiopathic. 4. We will arrange for outpatient upper extremity electrodiagnostic studies, which apparently were requested prior to admission by Dr. Salter. 5. Follow up sodium levels. 6. Fluid restriction. 7. Monitor heel and sacrum for erythema and breakdown. Patient is high risk for decubitus ulcer due to low albumin. 8. Continue Neurontin. 9. Continue Lovenox for DVT prophylaxis. 10. May require short-term rehabilitation in a [facility] facility. Thank you for this referral. KATY KWOK M.D. [id number]
--- NOTE | 2019-10-08 15:43 | EKG ---
Test Reason : Blood Pressure : / mmHG Vent. Rate : 074 BPM Atrial Rate : 074 BPM P-R Int : 198 ms QRS Dur : 108 ms QT Int : 418 ms P-R-T Axes : 093 017 041 degrees QTc Int : 463 ms POOR DATA QUALITY, INTERPRETATION MAY BE ADVERSELY AFFECTED NORMAL SINUS RHYTHM INFERIOR INFARCT (CITED ON OR BEFORE 05-OCT-2019) POSSIBLE ANTERIOR INFARCT (CITED ON OR BEFORE 05-OCT-2019) ABNORMAL ECG WHEN COMPARED WITH ECG OF 05-OCT-2019 23:52, T WAVE INVERSION NO LONGER EVIDENT IN LATERAL LEADS Confirmed by HAILEY ALLEN MD ([id number]) on 10/08/2019 3:42:59 PM Referred By: Confirmed By:HAILEY ALLEN MD
[2019-10-08] MEDS: GABAPENTIN 100 MG CAPSULE PO SCH ×2 (16:23→21:51)
[2019-10-08 19:53] VITALS: BMI 26.9
[2019-10-08] MEDS: metoPROLOL SUCCINATE 25 MG TAB.SR.24H (FP) PO SCH (21:51)
[2019-10-09] MEDS: LEVOTHYROXINE NA 100 MCG TABLET (FP) PO SCH (06:53)
[2019-10-09] MEDS: GABAPENTIN 100 MG CAPSULE PO SCH ×3 (06:53→22:10)
[2019-10-09 09:44] LABS: BASO % 0.7 % (0-2.0); EOS % 1.8 % (0-4.5); HEMATOCRIT 33.1 % (32.4-45.2); HEMOGLOBIN 11.5 GM/dL (10.7-15.3); LYMPH % 16.2 % (8-40); MCH 30.7 pg (25.7-33.7); MCHC 34.9 g/dl (32.0-36.0); MEAN CELL VOLUME 88.1 fl (80-96); MEAN PLT VOLUME 11.2 fl (7.5-11.1); MONO % 12.2 % (3.8-10.2); NEUT % 69.1 % (42.8-82.8); PLATELET COUNT 191 K/MM3 (134-434); RBC 3.76 M/mm3 (3.60-5.2); RDW 13.4 % (11.6-15.6); WHITE BLOOD COUNT 8.1 K/mm3 (4.0-10.0)
[2019-10-09 10:23] LABS: ALBUMIN 3.2 g/dl (3.4-5.0); BILIRUBIN,TOTAL 0.7 mg/dL (0.2-1); BLOOD UREA NITROGEN 16.7 mg/dL (7-18); CALCIUM 9.2 mg/dL (8.5-10.1); CREATININE 0.9 mg/dL (0.55-1.3); POTASSIUM 3.7 mmol/L (3.5-5.1); TOT PROT 6.2 g/dl (6.4-8.2)
[2019-10-09] MEDS: metoPROLOL SUCCINATE 25 MG TAB.SR.24H (FP) PO SCH ×2 (11:02→22:10)
[2019-10-09] MEDS: SODIUM CHLORIDE 1 GM TABLET PO SCH (11:02)
[2019-10-09] MEDS: FAMOTIDINE 20 MG TABLET PO SCH (11:04)
[2019-10-09] MEDS: ENOXAPARIN NA (PORCINE) 40 MG/0.4 ML DISP.SYRIN SQ SCH (11:05)
[2019-10-09] MEDS: LOSARTAN POTASSIUM 50 MG TABLET (FP) PO SCH (11:05)
--- NOTE | 2019-10-09 15:50 | PN ---
Progress Note, Physician Chief Complaint: Patient seen and examined at the bedside, generalized muscle weakness, unsteady gait, good appetite, no labored breathing, +paresthesia of feet. History of Present Illness: This 83 yr old w/f with hx of hypothyroidism, HTN, and bilateral hip replacement admitted via ER with acute hyponatremia, acute difficulty in walking , acute generalized muscle weakness, and uncontrolled hypertension. - Current Medication List Current Medications: Active Medications Enoxaparin Sodium (Lovenox -) 40 mg SQ DAILY [facility] Last Admin: 10/09/19 11:05 Dose: 40 mg Famotidine (Pepcid -) 20 mg PO DAILY [facility] Last Admin: 10/09/19 11:04 Dose: 20 mg Gabapentin (Neurontin -) 100 mg PO TID [facility] Last Admin: 10/09/19 14:45 Dose: 100 mg Levothyroxine Sodium (Synthroid -) 100 mcg PO DAILY@0700 [facility] Last Admin: 10/09/19 06:53 Dose: 100 mcg Losartan Potassium (Cozaar -) 50 mg PO DAILY [facility] Last Admin: 10/09/19 11:05 Dose: 50 mg Metoprolol Succinate (Toprol Xl -) 75 mg PO BID [facility] Last Admin: 10/09/19 11:02 Dose: 75 mg Sodium Chloride (Sodium Chloride Tablet -) 0.5 gm PO DAILY [facility] Last Admin: 10/09/19 11:02 Dose: 0.5 gm - Objective Vital Signs: Vital Signs Temperature 98.2 F 10/09/19 09:00 Pulse Rate 63 10/09/19 09:00 Respiratory Rate 18 10/09/19 09:00 Blood Pressure 136/54 L 10/09/19 09:00 O2 Sat by Pulse Oximetry (%) 96 10/09/19 10:00 Constitutional: Yes: Well Nourished, No Distress, Calm Eyes: Yes: Conjunctiva Clear, EOM Intact HENT: Yes: Atraumatic, Normocephalic Neck: Yes: Supple, Trachea Midline Cardiovascular: Yes: Regular Rate and Rhythm Respiratory: Yes: Regular, CTA Bilaterally Gastrointestinal: Yes: Normal Bowel Sounds, Soft ...Rectal Exam: Yes: Deferred Genitourinary: Yes: WNL Breast(s): Yes: WNL Musculoskeletal: Yes: Muscle Weakness Extremities: Yes: Other (generalized muscle weakness) Edema: LLE: 2+, RLE: 2+ Peripheral Pulses WNL: Yes Integumentary: Yes: WNL Neurological: Yes: Alert, Unsteady Gait, Weakness ...Motor Strength: LUE, LLE (muscle weakness), RLE (muscle weakness) Psychiatric: Yes: Alert Labs: CBC, BMP 10/09/19 08:25 10/09/19 06:00 INR, PTT INR 0.86 (0.83-1.09) 10/07/19 16:30 - ....Imaging Other: Report Reviewed (Lab data reviewed) Problem List - Problems (1) Hyponatremia Code(s): E87.1 - HYPO-OSMOLALITY AND HYPONATREMIA (2) Inability to ambulate due to ankle or foot Code(s): R26.2 - DIFFICULTY IN WALKING, NOT ELSEWHERE CLASSIFIED (3) High blood pressure Code(s): I10 - ESSENTIAL (PRIMARY) HYPERTENSION (4) Peripheral neuropathy Code(s): G62.9 - POLYNEUROPATHY, UNSPECIFIED (5) Urinary tract infection Code(s): N39.0 - URINARY TRACT INFECTION, SITE NOT SPECIFIED Assessment/Plan Assessment/plan: acute UTI due to Enterococcus, or Group D Strep, acute hyponatremia gradually improving, acute difficulty in walking, acute generalized muscle weakness, peripheral neuropathy of lower extremities; fluid restriction to 1000ml per 24 hours, oral sodium chloride, consult to ID, DVT prophylaxis, physical therapy.
[2019-10-10] MEDS: LEVOTHYROXINE NA 100 MCG TABLET (FP) PO SCH (06:13)
[2019-10-10] MEDS: GABAPENTIN 100 MG CAPSULE PO SCH ×3 (06:14→21:16)
[2019-10-10 08:55] LABS: ALBUMIN 3.2 g/dl (3.4-5.0); BILIRUBIN,TOTAL 0.6 mg/dL (0.2-1); BLOOD UREA NITROGEN 21.6 mg/dL (7-18); CREATININE 0.9 mg/dL (0.55-1.3); POTASSIUM 3.6 mmol/L (3.5-5.1)
[2019-10-10 08:59] LABS: BASO % 0.7 % (0-2.0); EOS % 2.1 % (0-4.5); HEMATOCRIT 32.3 % (32.4-45.2); HEMOGLOBIN 11.2 GM/dL (10.7-15.3); LYMPH % 20.1 % (8-40); MCH 30.9 pg (25.7-33.7); MCHC 34.6 g/dl (32.0-36.0); MEAN CELL VOLUME 89.1 fl (80-96); MEAN PLT VOLUME 11.3 fl (7.5-11.1); MONO % 11.2 % (3.8-10.2); NEUT % 65.9 % (42.8-82.8); PLATELET COUNT 179 K/MM3 (134-434); RBC 3.62 M/mm3 (3.60-5.2); RDW 13.7 % (11.6-15.6); WHITE BLOOD COUNT 9.5 K/mm3 (4.0-10.0)
[2019-10-10] MEDS ORDERED: PT OWN MED DRAWER 7, Y5N ONE (09:56)
[2019-10-10] MEDS: metoPROLOL SUCCINATE 25 MG TAB.SR.24H (FP) PO SCH ×2 (10:00→21:16)
[2019-10-10] MEDS: SODIUM CHLORIDE 1 GM TABLET PO SCH (10:01)
[2019-10-10] MEDS: ENOXAPARIN NA (PORCINE) 40 MG/0.4 ML DISP.SYRIN SQ SCH (10:02)
[2019-10-10] MEDS: FAMOTIDINE 20 MG TABLET PO SCH (10:02)
[2019-10-10] MEDS: LOSARTAN POTASSIUM 50 MG TABLET (FP) PO SCH (10:02)
--- NOTE | 2019-10-10 10:45 | PN ---
Progress Note, Physician Chief Complaint: Patient seen and examined at the bedside, generalized muscle weakness, unsteady , gait, no labored breathing, no dysuria, + constipation. History of Present Illness: This 83 yr old w/f with PMH of hypothyrodism, HTN, and bilateral hip replacement admitted via ER with acute hyponatremia, acute difficulty in walking , acute generalized muscle weakness, and uncontrolled hypertension. - Current Medication List Current Medications: Active Medications Enoxaparin Sodium (Lovenox -) 40 mg SQ DAILY [facility] Last Admin: 10/10/19 10:02 Dose: 40 mg Famotidine (Pepcid -) 20 mg PO DAILY [facility] Last Admin: 10/10/19 10:02 Dose: 20 mg Gabapentin (Neurontin -) 100 mg PO TID [facility] Last Admin: 10/10/19 06:14 Dose: 100 mg Levothyroxine Sodium (Synthroid -) 100 mcg PO DAILY@0700 [facility] Last Admin: 10/10/19 06:13 Dose: 100 mcg Losartan Potassium (Cozaar -) 50 mg PO DAILY [facility] Last Admin: 10/10/19 10:02 Dose: 50 mg Metoprolol Succinate (Toprol Xl -) 75 mg PO BID [facility] Last Admin: 10/10/19 10:00 Dose: 75 mg Sodium Chloride (Sodium Chloride Tablet -) 0.5 gm PO DAILY [facility] Last Admin: 10/10/19 10:01 Dose: 0.5 gm - Objective Vital Signs: Vital Signs Temperature 98.6 F 10/10/19 09:47 Pulse Rate 61 10/10/19 09:47 Respiratory Rate 18 10/10/19 09:47 Blood Pressure 150/67 10/10/19 09:47 O2 Sat by Pulse Oximetry (%) 96 10/09/19 21:00 Constitutional: Yes: Well Nourished, No Distress, Calm Eyes: Yes: Conjunctiva Clear, EOM Intact HENT: Yes: Atraumatic, Normocephalic Neck: Yes: Supple, Trachea Midline Cardiovascular: Yes: Regular Rate and Rhythm Respiratory: Yes: Regular, CTA Bilaterally, Cough (GERD) Gastrointestinal: Yes: Other (GERD, constipation) ...Rectal Exam: Yes: Deferred Genitourinary: Yes: WNL Breast(s): Yes: WNL Musculoskeletal: Yes: Muscle Weakness Extremities: Yes: WNL Edema: No Peripheral Pulses WNL: Yes Integumentary: Yes: WNL Neurological: Yes: Unsteady Gait, Weakness ...Motor Strength: LLE (muscle weakness), RLE (muscle weakness) Psychiatric: Yes: Alert Labs: CBC, BMP 10/10/19 07:12 10/10/19 07:12 INR, PTT INR 0.86 (0.83-1.09) 10/07/19 16:30 - ....Imaging Other: Report Reviewed (Lab data reviewed, Neuro note read and appreciated) Problem List - Problems (1) Hyponatremia Code(s): E87.1 - HYPO-OSMOLALITY AND HYPONATREMIA (2) Inability to ambulate due to ankle or foot Code(s): R26.2 - DIFFICULTY IN WALKING, NOT ELSEWHERE CLASSIFIED (3) High blood pressure Code(s): I10 - ESSENTIAL (PRIMARY) HYPERTENSION (4) Peripheral neuropathy Code(s): G62.9 - POLYNEUROPATHY, UNSPECIFIED (5) Urinary tract infection Code(s): N39.0 - URINARY TRACT INFECTION, SITE NOT SPECIFIED (6) Constipation Code(s): K59.00 - CONSTIPATION, UNSPECIFIED Assessment/Plan Assessment/plan: acute hyponatremia (Na 132), acute generalized muscle weakness , acute difficulty in walking, acute constipation; oral Miralax, DVT prophylaxis , physical therapy, short term rehab, discharge planning, manager social responsibility request.
[2019-10-10] MEDS: POLYETHYLENE GLYCOL 3350 119 GM BTL PO SCH (11:54)
--- NOTE | 2019-10-10 13:11 | PN ---
Progress Note (short form) - Note Progress Note: ID consult dictated imp/reccd 83 yo female admitted from [facility] with sudden inability to walk her left leg which always troubles her-sudeenly froze and she couldn't walk now much improved has been treated for hyponatremia as well no signs or symptoms of UTI asymptomatic bacteriuria no need to treat pen allergy continue bowel regimen to prevent constipation d/w patient at length Problem List - Problems (1) Asymptomatic bacteriuria Code(s): R82.71 - BACTERIURIA (2) Hyponatremia Code(s): E87.1 - HYPO-OSMOLALITY AND HYPONATREMIA (3) Penicillin allergy Code(s): Z88.0 - ALLERGY STATUS TO PENICILLIN
--- NOTE | 2019-10-10 20:43 | CONS ---
DATE OF CONSULTATION: DATE OF DICTATION: 10/10/2019 REQUESTED BY: Gomez Humphrey MD This is an 83-year-old woman who lives at the [facility]. She lives at [facility]. She reports that 4-1/2 years ago she had left hip surgery and since that time, she has been struggling with her left foot, which has been progressively getting worse. She uses a walker to ambulate. She has had decreased activity and ability to ambulate over the last 5 to 6 months. It is really getting to the point that she now very recently a week ago needed to get an aide to help her at the [facility]. She was started on Cymbalta on October 02 and says that after she started the pills, she started feeling unwell and she took a day off, resumed again, she felt nauseous and uncomfortable. She was seen in the ER on October 05. Her blood pressure was elevated and she was treated and discharged. She returned to the ER on the . She was apparently walking to join a group activity at her [facility] residence and suddenly her left leg froze and she could not walk. She denies any fevers or chills. She has no dysuria. She has no nausea or vomiting. She came to the emergency room, where she was found to have a sodium of 123. She was admitted for further evaluation. She is currently awake and alert and resting comfortably. Her past medical history is notable for hypertension, hypothyroidism, and the peripheral neuropathy. She has a history of bilateral hip replacements. She reports her right hip was replaced and she has had no trouble whatsoever, everything has been with the left hip. She has a history of left inguinal hernia repair, TERESA/BSO, and cataract surgery. SOCIAL HISTORY: She is a never smoker, no substance use. ALLERGIES: She reports a history of a rash to PENICILLIN. There has been no anaphylaxis or angioedema. The rash occurred after she stopped the antibiotics and was attributed to it. Her medications at the [facility] include Toprol XL, Synthroid, Cymbalta, famotidine, hydralazine, magnesium, and telmisartan. Family history is notable for diabetes in her father and dementia in her mother. REVIEW OF SYSTEMS: She currently feels well. She has no back pain, diarrhea, or dysuria. In fact, she is mildly constipated. She normally takes MiraLAX every night and drinks prune juice. PHYSICAL EXAMINATION: General: She is a very pleasant 83-year-old woman in no acute distress. Vital Signs: She has been afebrile since admission. Temperature is 98.6. Pulse 61. Blood pressure 150/67. Respiratory rate 18. HEENT: Normocephalic. Her eyes are anicteric. Neck: Supple. Lungs: Clear to auscultation. Heart: Regular rate and rhythm. Abdomen: Soft. She has no suprapubic or CVA tenderness. Extremities: Without edema. White count is 9.4, hemoglobin 11.2, platelets 179. BUN 16, creatinine 0.9. There is an alkaline phosphatase of 132. Urinalysis with 1+ leukocytes, and a urine culture that is growing 2 organisms, both E coli and a group B streptococcus. In summary, this is an 83-year-old woman who reports feeling much improved after getting admitted with some difficulty ambulating. She has been treated for her hyponatremia as well. She has no signs or symptoms of UTI. Suspect this is most consistent with asymptomatic bacteruria, no need to treat. As well, she has PENICILLIN allergy manifested by rash. Discussed the details of this with the patient at length. She is quite comfortable with this. She has had a UTI before and does not feel this is consistent with her prior urinary tract infection. CHON SANTIAGO M.D. [id number]
[2019-10-11] MEDS: LEVOTHYROXINE NA 100 MCG TABLET (FP) PO SCH (06:05)
[2019-10-11] MEDS: GABAPENTIN 100 MG CAPSULE PO SCH ×2 (06:05→14:40)
--- NOTE | 2019-10-11 08:44 | PN ---
Progress Note (short form) - Note Progress Note: Neurology - Admission Chief Complaint: Acute difficulty in walking, acute generalized muscle weakness , acute paresthesia of both feet. History of Present Illness: 83 yr old with hx of HTN, hypothyroidism, s/p bilateral hip replacement, s/p total hysterectomy with bilateral salpingo-oophorectomy, left inguinal hernia repair presented to the ER with difficulty walking and HTN. She had presented to me in the office for complaints of neuropathic discomfort in her lower extremities. She has indicated prior orthopedic surgery with possible nerve being "severed". She indicated heaviness in her lower extremities with difficulty ambulating. We had started her on Cymbalta on 10/02/19 for b/l foot paresthesias (worse on left). She reported not feeling well after taking it and took the next day off. She resumed for 2 days and felt nauseous with loss of appetite and felt weak on her left side. Of note, her sodium was reduced to 124 and reportedly had presented to the ER and discharged. She returns ddue to difficulty with ambulation and had contacted our office indicating inability to get out of bed. Ct of head performed and showed no acute intracranial pathology. I was contacted by the primary care physician and we have been discussing her case. One thought was nneuropathy possibly from use of hydralazine which is mentioned in case report though seems less likely. We'll defer to cardiology regarding blood pressure medications and possibly trying alternative medication. I did reach out to Dr. Tran who had referred the patient to for EMG/nerve conduction studies which were completed aand demonstrated evidence of idiopathic neuropathy, no evidence of myopathy or lumbar radiculopathy. I started the patient on gabapentin 100 mg 3 times a day and she denied any side effects or issues with the medication. She continues to complain of neuropathic discomfort but at this time I would not want to significantly increase the medication as it may take time for her to have a therapeutic effect. We did discuss possibility of short-term rehabilitation and she is in agreement with this. Reports trying to participate in bedside physical therapy but limited and requiring assistance. Active Medications Enoxaparin Sodium (Lovenox -) 40 mg SQ DAILY [facility] Last Admin: 10/10/19 10:02 Dose: 40 mg Famotidine (Pepcid -) 20 mg PO DAILY [facility] Last Admin: 10/10/19 10:02 Dose: 20 mg Gabapentin (Neurontin -) 100 mg PO TID [facility] Last Admin: 10/11/19 06:05 Dose: 100 mg Levothyroxine Sodium (Synthroid -) 100 mcg PO DAILY@0700 [facility] Last Admin: 10/11/19 06:05 Dose: 100 mcg Losartan Potassium (Cozaar -) 50 mg PO DAILY [facility] Last Admin: 10/10/19 10:02 Dose: 50 mg Metoprolol Succinate (Toprol Xl -) 75 mg PO BID [facility] Last Admin: 10/10/19 21:16 Dose: 75 mg Polyethylene Glycol (Miralax (For Daily Use) -) 17 gm PO DAILY [facility] Last Admin: 10/10/19 11:54 Dose: 17 gm Physical Examination Vital Signs: Vital Signs Period Temp Pulse Resp BP Sys/[place] Pulse Ox Last 24 Hr 98.5 F-98.8 F 56-64 18-20 143-158/59-67 96-97 Constitutional: Yes: Well Nourished, No Distress, Calm Eyes: Yes: Conjunctiva Clear, EOM Intact HENT: Yes: Atraumatic, Normocephalic Neck: Yes: Supple, Trachea Midline Cardiovascular: Yes: Regular Rate and Rhythm Respiratory: Yes: Regular, CTA Bilaterally Gastrointestinal: Yes: Normal Bowel Sounds, Soft ...Rectal Exam: Yes: Deferred Renal/: Yes: WNL Breast(s): Yes: WNL Musculoskeletal: Yes: Muscle Weakness Edema: Yes Edema: LLE: 2+, RLE: 2+ Peripheral Pulses WNL: Yes Integumentary: Yes: WNL Neurological: cranial nerves intact, Decreased ppinprick and light touch in distal lower extremities, 4+/5 RLE, 5-/5 in LLE, gait deferred Labs: CBCD WBC 9.5 K/mm3 (4.0-10.0) 10/10/19 07:12 RBC 3.62 M/mm3 (3.60-5.2) 10/10/19 07:12 Hgb 11.2 GM/dL (10.7-15.3) 10/10/19 07:12 Hct 32.3 % (32.4-45.2) L 10/10/19 07:12 MCV 89.1 fl (80-96) 10/10/19 07:12 MCHC 34.6 g/dl (32.0-36.0) 10/10/19 07:12 RDW 13.7 % (11.6-15.6) 10/10/19 07:12 Plt Count 179 K/MM3 (134-434) 10/10/19 07:12 MPV 11.3 fl (7.5-11.1) H 10/10/19 07:12 CMP Sodium 132 mmol/L (136-145) L 10/10/19 07:12 Potassium 3.6 mmol/L (3.5-5.1) 10/10/19 07:12 Chloride 99 mmol/L (98-107) 10/10/19 07:12 Carbon Dioxide 27 mmol/L (21-32) 10/10/19 07:12 Anion Gap 7 MMOL/L (8-16) L 10/10/19 07:12 BUN 21.6 mg/dL (7-18) H 10/10/19 07:12 Creatinine 0.9 mg/dL (0.55-1.3) 10/10/19 07:12 Random Glucose 93 mg/dL (74-106) 10/10/19 07:12 Calcium 9.0 mg/dL (8.5-10.1) 10/10/19 07:12 Total Bilirubin 0.6 mg/dL (0.2-1) 10/10/19 07:12 AST 28 U/L (15-37) 10/10/19 07:12 ALT 36 U/L (13-61) 10/10/19 07:12 Alkaline Phosphatase 119 U/L (45-117) H 10/10/19 07:12 Total Protein 6.0 g/dl (6.4-8.2) L 10/10/19 07:12 Albumin 3.2 g/dl (3.4-5.0) L 10/10/19 07:12 CARDIAC ENZYMES Creatine Kinase 254 U/L (26-192) H 10/07/19 16:30 Troponin I < 0.02 ng/ml (0.00-0.05) 10/07/19 16:30 Assessment/Plan 83 yr old with hx of HTN, hypothyroidism, s/p bilateral hip replacement, s/p total hysterectomy with bilateral salpingo-oophorectomy, left inguinal hernia repair presented to the ER with difficulty walking and HTN. She had presented to me in the office for complaints of neuropathic discomfort in her lower extremities. She has indicated prior orthopedic surgery with possible nerve being "severed". She indicated heaviness in her lower extremities with difficulty ambulating. We had started her on Cymbalta on 10/02/19 for b/l foot paresthesias (worse on left). She reported not feeling well after taking it and took the next day off. She resumed for 2 days and felt nauseous with loss of appetite and felt weak on her left side. Of note, her sodium was reduced to 124 and reportedly had presented to the ER and discharged. She returns ddue to difficulty with ambulation and had contacted our office indicating inability to get out of bed. Ct of head performed and showed no acute intracranial pathology. I was contacted by the primary care physician and we have been discussing her case. One thought was nneuropathy possibly from use of hydralazine which is mentioned in case report though seems less likely. We'll defer to cardiology regarding blood pres I did reach out to Dr. Tran who had referred the patient to for EMG/nerve conduction studies which were completed aand demonstrated evidence of idiopathic neuropathy, no evidence of myopathy or lumbar radiculopathy. I started the patient on gabapentin 100 mg 3 times a day and she denied any side effects or issues with the medication. She continues to complain of neuropathic discomfort but at this time I would not want to significantly increase the medication as it may take time for her to have a therapeutic effect. We did discuss possibility of short-term rehabilitation and she is in agreement with this. Reports trying to participate in bedside physical therapy but limited and requiring assistance. explained to her that her gait disturbance is likely multifactorial including mechanical and arthritic limitations, neuropathy, and possibly from prior nerve injury. Fall precautions needed. Monitor sodium, would not put her back on Cymbalta.
[2019-10-11 09:32] VITALS: PULSE 65
[2019-10-11] MEDS: metoPROLOL SUCCINATE 25 MG TAB.SR.24H (FP) PO SCH (09:33)
[2019-10-11] MEDS: FAMOTIDINE 20 MG TABLET PO SCH (09:33)
[2019-10-11] MEDS: ENOXAPARIN NA (PORCINE) 40 MG/0.4 ML DISP.SYRIN SQ SCH (09:34)
[2019-10-11] MEDS: LOSARTAN POTASSIUM 50 MG TABLET (FP) PO SCH (09:34)
[2019-10-11] MEDS: POLYETHYLENE GLYCOL 3350 119 GM BTL PO SCH (09:35)
[2019-10-11 10:07] LABS: BASO % 0.7 % (0-2.0); EOS % 3.2 % (0-4.5); HEMATOCRIT 32.3 % (32.4-45.2); HEMOGLOBIN 11.1 GM/dL (10.7-15.3); LYMPH % 19.1 % (8-40); MCH 30.6 pg (25.7-33.7); MCHC 34.4 g/dl (32.0-36.0); MEAN CELL VOLUME 88.9 fl (80-96); MEAN PLT VOLUME 11.2 fl (7.5-11.1); MONO % 11.3 % (3.8-10.2); NEUT % 65.7 % (42.8-82.8); PLATELET COUNT 174 K/MM3 (134-434); RBC 3.63 M/mm3 (3.60-5.2); RDW 13.8 % (11.6-15.6); WHITE BLOOD COUNT 8.3 K/mm3 (4.0-10.0)
[2019-10-11 10:31] LABS: BILIRUBIN,TOTAL 0.8 mg/dL (0.2-1); BLOOD UREA NITROGEN 20.6 mg/dL (7-18); CALCIUM 9.2 mg/dL (8.5-10.1); CREATININE 0.8 mg/dL (0.55-1.3); POTASSIUM 3.8 mmol/L (3.5-5.1); TOT PROT 6.1 g/dl (6.4-8.2)
--- NOTE | 2019-10-11 14:41 | DS ---
Physical Examination Vital Signs: Vital Signs Temperature 98.7 F 10/11/19 09:27 Pulse Rate 65 10/11/19 09:27 Respiratory Rate 20 10/11/19 09:27 Blood Pressure 152/60 10/11/19 09:27 O2 Sat by Pulse Oximetry (%) 96 10/10/19 21:00 Constitutional: Yes: Well Nourished, No Distress, Calm Eyes: Yes: Conjunctiva Clear, EOM Intact HENT: Yes: Atraumatic, Normocephalic Neck: Yes: Supple, Trachea Midline Cardiovascular: Yes: Regular Rate and Rhythm Respiratory: Yes: Regular, CTA Bilaterally Gastrointestinal: Yes: Normal Bowel Sounds, Soft ...Rectal Exam: Yes: Deferred Renal/: Yes: WNL Breast(s): Yes: WNL Musculoskeletal: Yes: Muscle Weakness Extremities: Yes: Other (generalized muscle weakness) Edema: No Peripheral Pulses WNL: Yes Integumentary: Yes: WNL Neurological: Yes: Alert, Oriented, Unsteady Gait, Weakness ...Motor Strength: LLE (muscle weakness), RLE (muscle weakness) Psychiatric: Yes: Alert, Oriented Labs: CBC, BMP 10/11/19 08:38 10/11/19 08:38 Discharge Summary Problems reviewed: Yes Reason For Visit: INABILITY TO AMBULATE DUE TO ANKLE OR FOOT Current Active Problems Asymptomatic bacteriuria (Acute) Constipation (Acute) Hyponatremia (Acute) Inability to ambulate due to ankle or foot (Acute) Penicillin allergy (Acute) Peripheral neuropathy (Acute) Urinary tract infection (Acute) Condition: Stable - Instructions Diet, Activity, Other Instructions: Continue home meds except for Famotidine 20mg po bid (cough due to acid reflux). Transfer to [facility] for short term rehab if okay with patient. Physical therapy. Follow up with Dr. Casas. Total time spent over 30 minutes. Referrals: Erin Sullivan [Primary Care Provider] - Disposition: [facility] FACILITY - Home Medications Comprehensive Discharge Medication List: Ambulatory Orders Levothyroxine [Synthroid -] 100 mcg PO DAILY 06/02/17 Famotidine 20 mg PO DAILY 10/05/19 Hydralazine HCl 10 mg PO BID 10/05/19 Magnesium Malate 2 gm PO DAILY 10/05/19 Telmisartan 80 mg PO DAILY 10/05/19 Famotidine [Pepcid -] 20 mg PO DAILY tablet 10/11/19 Gabapentin [Neurontin -] 100 mg PO TID capsule 10/11/19 Levothyroxine [Synthroid -] 100 mcg PO DAILY@0700 tablet 10/11/19 Metoprolol Succinate [Toprol XL -] 75 mg PO BID tab.sr.24h 10/11/19 Polyethylene Glycol 3350 [Miralax 119 gm Btl -] 17 gm PO DAILY bottle 10/11/19
[2019-10-11 15:26] VITALS: BP 152/71; TEMP 98.8
--- NOTE | 2019-10-11 16:16 | PN ---
Progress Note (short form) - Note Progress Note: s: no chest pain, palps, dizziness, dyspnea Current Medications Enoxaparin Sodium (Lovenox -) 40 mg SQ DAILY [facility] Last Admin: 10/11/19 09:34 Dose: 40 mg Famotidine (Pepcid -) 20 mg PO BID [facility] Gabapentin (Neurontin -) 100 mg PO TID [facility] Last Admin: 10/11/19 14:40 Dose: 100 mg Levothyroxine Sodium (Synthroid -) 100 mcg PO DAILY@0700 [facility] Last Admin: 10/11/19 06:05 Dose: 100 mcg Losartan Potassium (Cozaar -) 50 mg PO DAILY [facility] Last Admin: 10/11/19 09:34 Dose: 50 mg Metoprolol Succinate (Toprol Xl -) 75 mg PO BID [facility] Last Admin: 10/11/19 09:33 Dose: 75 mg Polyethylene Glycol (Miralax (For Daily Use) -) 17 gm PO DAILY [facility] Last Admin: 10/11/19 09:35 Dose: 17 gm Vital Signs Period Temp Pulse Resp BP Sys/[place] Pulse Ox Last 24 Hr 98.5 F-98.8 F 56-65 20-20 145-158/59-71 96 Constitutional: Yes: No Distress, Calm Respiratory: Yes: CTA Bilaterally Gastrointestinal: Yes: Soft Cardiovascular: Yes: Regular Rate and Rhythm Heart Sounds: Yes: S1, S2 Murmur: Yes: Systolic Murmur no edema no jaundice, diaphoresis not agitated - Results Chest X-ray: Report Reviewed Cat Scan: Report Reviewed EKG: Image Reviewed Assessment/Plan IMP: Chronic labile HTN Chronic neuropathy of unclear etiology Hyponatremia Cardiomegaly on CXR REC: 1. Neuro evaluation 2. Management of Na+ as per PMD 3. As per Dr. Tang, d/c hydralazine (as it may rarely cause neuropathy) and increased Toprol to 75BID - BP stable
[2019-10-11] MEDS ORDERED: FAMOTIDINE 20 MG TABLET PO SCH (22:00)
== END 2019-10-11 17:22 | DRG 556 ==
LOC: JER 15:18 → JERBED 19:14 → J5S 10-08 14:41
PROVIDERS: ADMIT Internal Medicine; ATTEND Internal Medicine
DX: R26.2 Difficulty in walking, not elsewhere classified (principal); M62.81 Muscle weakness (generalized); E87.1 Hypo-osmolality and hyponatremia; I10 Essential (primary) hypertension; N39.0 Urinary tract infection, site not specified; R82.71 Bacteriuria; B96.20 Unspecified Escherichia coli [E. coli] as the cause of diseases classified elsewhere; G62.9 Polyneuropathy, unspecified; E03.9 Hypothyroidism, unspecified; K59.00 Constipation, unspecified; R20.2 Paresthesia of skin; K21.9 Gastro-esophageal reflux disease without esophagitis; E78.00 Pure hypercholesterolemia, unspecified; Z96.643 Presence of artificial hip joint, bilateral; F41.9 Anxiety disorder, unspecified
CPT/HCPCS: 36415; 70450-TC; 71045-TC-FY; 80051; 80053; 80061; 81003; 82550; 82553; 83721; 83735; 83880; 83935; 84300; 84443; 84484; 85025; 85610; 85730; 87086; 87186; 93005; 93010; 97116-GP; 97161-GP; 99283-25; 99285-25

== ENCOUNTER 2023-01-27 17:25 | Inpatient (IN) | payer OTHER, BC ==
[2023-01-27 17:39] VITALS: BMI 27.8
[2023-01-27] MEDS ORDERED: SODIUM CHLORIDE 1,000 ML IV SCH (18:30)
[2023-01-27 18:40] LABS: BASO % 0.9 % (0-2.0); EOS % 0.3 % (0-4.5); LYMPH % 12.6 % (8-40); MCH 30.4 pg (25.7-33.7); MCHC 34.2 g/dl (32.0-36.0); MEAN CELL VOLUME 88.9 fl (80-96); MEAN PLT VOLUME 10.8 fl (7.5-11.1); MONO % 6.6 % (3.8-10.2); NEUT % 79.6 % (42.8-82.8); PLATELET COUNT 258 10^3/uL (134-434); RBC 4.61 M/mm3 (3.60-5.2); RDW 13.9 % (11.6-15.6); WHITE BLOOD COUNT 15.3 K/mm3 (4.0-10.0)
[2023-01-27 18:52] LABS: INR 0.9 (0.83-1.09); PROTHROMBIN TIME (PATIENT) 10.5 SEC (9.7-13.0)
[2023-01-27 19:00] LABS: POTASSIUM 4.2 mmol/L (3.5-5.1)
[2023-01-27 19:01] LABS: CALCIUM 10.5 mg/dL (8.5-10.1)
[2023-01-27 19:03] LABS: BLOOD UREA NITROGEN 22.2 mg/dL (7-18)
[2023-01-27 19:05] LABS: CREATININE 0.8 mg/dL (0.55-1.3)
[2023-01-27 19:07] LABS: TOT PROT 7.4 g/dl (6.4-8.2)
[2023-01-27 19:08] LABS: BILIRUBIN,TOTAL 0.9 mg/dL (0.2-1)
[2023-01-27 19:32] LABS: EPI CELLS >36 /uL (0-25.1); HYALINE CASTS 1 /uL (0-3.1); URINE APPEARANCE TURBID; URINE BACTERIA >9,000 /uL (0-1359); URINE BILIRUBIN NEGATIVE (NEGATIVE); URINE COLOR YELLOW; URINE GLUCOSE (UA) NEGATIVE (NEGATIVE); URINE KETONE NEGATIVE (NEGATIVE); URINE LEUK ESTERASE NEGATIVE (NEGATIVE); URINE NITRITE NEGATIVE (NEGATIVE); URINE PROTEIN 3+ (NEGATIVE); URINE RBC 66 /uL (0-23.9); URINE UROBILINOGEN 0.2 mg/dL (0.2-1.0); URINE WBC 83 /uL (0-25.8)
[2023-01-27] MEDS ORDERED: VANCOMYCIN 1 GM in D5W (PRE-DOCKED) 1,000 MG/250 ML (RESTRICTED TO ID ONLY IVPB ONE (19:57)
[2023-01-27] MEDS ORDERED: CEFTRIAXONE 1,000 MG in DEXTROSE 5%-WATER - 50 ML IVPB ONE (19:57)
[2023-01-27] MEDS ORDERED: ATORVASTATIN CA 40 MG TABLET (FP) ONE (20:00)
[2023-01-27] MEDS ORDERED: PANTOPRAZOLE 40 MG TABLET PO ONE (20:00)
[2023-01-27] MEDS ORDERED: DOCUSATE SODIUM 100 MG CAPSULE (FP) PO ONE (20:01)
[2023-01-27] MEDS ORDERED: CEFTRIAXONE 1 GM/50 ML BAG ONE (20:01)
[2023-01-27] MEDS ORDERED: VANCOMYCIN/WATER FOR INJ (PEG) 1,000 MG/200 ML BAG IVPB ONE (20:01)
[2023-01-27] MEDS ORDERED: MAGNESIUM OXIDE 400 MG TABLET (FP) ONE (20:16)
[2023-01-27] MEDS: PANTOPRAZOLE 40 MG TABLET PO SCH (20:23)
[2023-01-27] MEDS: DOCUSATE SODIUM 100 MG CAPSULE (FP) PO SCH ×2 (20:36→21:50)
[2023-01-27] MEDS: MAGNESIUM OXIDE 400 MG TABLET (FP) PO SCH ×2 (20:36→21:50)
[2023-01-27] MEDS: ATORVASTATIN CA 40 MG TABLET (FP) PO SCH ×2 (20:36→21:50)
[2023-01-27] MEDS ORDERED: ASPIRIN 81 MG CHEWABLE TABLETS PO ONE (20:46)
[2023-01-27] MEDS ORDERED: LORazepam 2 MG/ML SDV VIAL IVPUSH PRN (21:19)
[2023-01-27] MEDS ORDERED: ACETAMINOPHEN 325 MG TABLET (FP) PO PRN (21:54)
[2023-01-27] MEDS ORDERED: oxyCODONE HCL 5 MG TABLET PO PRN (21:54)
[2023-01-27] MEDS: GABAPENTIN 100 MG CAPSULE PO SCH (22:12)
[2023-01-27] MEDS ORDERED: VANCOMYCIN 1 GM/200 ML PREMIX BAG (RESTRICTED TO ID ONLY) IVPB ONE (22:30)
[2023-01-28] MEDS: GABAPENTIN 100 MG CAPSULE PO SCH ×3 (06:05→21:24)
[2023-01-28] MEDS: LEVOTHYROXINE NA 100 MCG TABLET (FP) PO SCH (06:05)
[2023-01-28] MEDS: DOCUSATE SODIUM 100 MG CAPSULE (FP) PO SCH ×3 (06:05→21:24)
[2023-01-28 06:41] LABS: BASO % 0.6 % (0-2.0); EOS % 1.4 % (0-4.5); HEMATOCRIT 37.4 % (32.4-45.2); HEMOGLOBIN 13.1 GM/dL (10.7-15.3); LYMPH % 17.1 % (8-40); MCH 31.1 pg (25.7-33.7); MEAN CELL VOLUME 88.9 fl (80-96); MEAN PLT VOLUME 11.4 fl (7.5-11.1); MONO % 8.4 % (3.8-10.2); NEUT % 72.5 % (42.8-82.8); PLATELET COUNT 211 10^3/uL (134-434); RDW 13.8 % (11.6-15.6)
[2023-01-28 07:14] LABS: POTASSIUM 4.1 mmol/L (3.5-5.1)
[2023-01-28 07:22] LABS: ALBUMIN 3.5 g/dl (3.4-5.0); CALCIUM 9.8 mg/dL (8.5-10.1)
[2023-01-28 07:23] LABS: BLOOD UREA NITROGEN 23.8 mg/dL (7-18)
[2023-01-28 07:26] LABS: CREATININE 0.9 mg/dL (0.55-1.3)
[2023-01-28 07:27] LABS: BILIRUBIN,TOTAL 0.8 mg/dL (0.2-1); TOT PROT 6.4 g/dl (6.4-8.2)
[2023-01-28] MEDS: MAGNESIUM OXIDE 400 MG TABLET (FP) PO SCH ×2 (09:54→21:24)
[2023-01-28] MEDS: amLODIPine BESYLATE 10 MG TABLET (FP) PO SCH (09:55)
[2023-01-28] MEDS: POLYETHYLENE GLYCOL (HEALTHYLAX) 3350 17 GM PACKET PO SCH (09:55)
[2023-01-28] MEDS: PANTOPRAZOLE 40 MG TABLET PO SCH (09:55)
[2023-01-28] MEDS: CHOLECALCIFEROL (VIT D3) 1,000 UNIT (25 MCG) TABLET PO SCH (09:55)
[2023-01-28] MEDS ORDERED: LOSARTAN POTASSIUM 50 MG TABLET PO SCH (10:00)
[2023-01-28] MEDS: CEFTRIAXONE 1 GM in DEXTROSE 5%-WATER - 50 ML IVPB SCH (12:29)
[2023-01-28] MEDS: ATORVASTATIN CA 40 MG TABLET (FP) PO SCH (21:24)
[2023-01-29 00:20] LABS: EPI CELLS 14 /uL (0-25.1); HYALINE CASTS 3 /uL (0-3.1); URINE APPEARANCE CLEAR; URINE BACTERIA 778 /uL (0-1359); URINE BILIRUBIN NEGATIVE (NEGATIVE); URINE COLOR YELLOW; URINE GLUCOSE (UA) NEGATIVE (NEGATIVE); URINE KETONE NEGATIVE (NEGATIVE); URINE LEUK ESTERASE 2+ (NEGATIVE); URINE NITRITE NEGATIVE (NEGATIVE); URINE PROTEIN 3+ (NEGATIVE); URINE RBC 15 /uL (0-23.9); URINE UROBILINOGEN 0.2 mg/dL (0.2-1.0); URINE WBC 798 /uL (0-25.8)
[2023-01-29] MEDS: DOCUSATE SODIUM 100 MG CAPSULE (FP) PO SCH ×3 (05:41→21:28)
[2023-01-29] MEDS: GABAPENTIN 100 MG CAPSULE PO SCH ×3 (05:42→21:27)
[2023-01-29] MEDS: LEVOTHYROXINE NA 100 MCG TABLET (FP) PO SCH (06:24)
[2023-01-29 06:50] LABS: BASO % 0.6 % (0-2.0); EOS % 1.4 % (0-4.5); HEMATOCRIT 35.4 % (32.4-45.2); HEMOGLOBIN 12.6 GM/dL (10.7-15.3); LYMPH % 16.8 % (8-40); MCH 31.6 pg (25.7-33.7); MCHC 35.7 g/dl (32.0-36.0); MEAN CELL VOLUME 88.5 fl (80-96); MEAN PLT VOLUME 11.2 fl (7.5-11.1); MONO % 7.8 % (3.8-10.2); NEUT % 73.4 % (42.8-82.8); PLATELET COUNT 190 10^3/uL (134-434); RDW 13.7 % (11.6-15.6); WHITE BLOOD COUNT 11.4 K/mm3 (4.0-10.0)
[2023-01-29 07:18] LABS: POTASSIUM 4.4 mmol/L (3.5-5.1)
[2023-01-29 07:21] LABS: CALCIUM 9.5 mg/dL (8.5-10.1)
[2023-01-29] MEDS ORDERED: SODIUM CHLORIDE 1 GM TABLET PO SCH (08:30)
[2023-01-29] MEDS: amLODIPine BESYLATE 10 MG TABLET (FP) PO SCH (09:14)
[2023-01-29] MEDS: CHOLECALCIFEROL (VIT D3) 1,000 UNIT (25 MCG) TABLET PO SCH (09:14)
[2023-01-29] MEDS: POLYETHYLENE GLYCOL (HEALTHYLAX) 3350 17 GM PACKET PO SCH (09:15)
[2023-01-29] MEDS: CEFTRIAXONE 1 GM in DEXTROSE 5%-WATER - 50 ML IVPB SCH (09:15)
[2023-01-29] MEDS: MAGNESIUM OXIDE 400 MG TABLET (FP) PO SCH ×2 (09:15→21:28)
[2023-01-29] MEDS: PANTOPRAZOLE 40 MG TABLET PO SCH (09:15)
[2023-01-29] MEDS ORDERED: ENOXAPARIN NA (PORCINE) 40 MG/0.4 ML DISP.SYRIN SQ SCH (10:00)
[2023-01-29] MEDS ORDERED: ACETAMINOPHEN 325 MG TABLET (FP) PO PRN (17:09)
[2023-01-29] MEDS ORDERED: oxyCODONE HCL 5 MG TABLET PO PRN (17:09)
[2023-01-29] MEDS ORDERED: ATORVASTATIN CA 40 MG TABLET (FP) PO SCH (22:00)
[2023-01-29 22:42] VITALS: RESP 18
[2023-01-30] MEDS: DOCUSATE SODIUM 100 MG CAPSULE (FP) PO SCH ×2 (06:01→13:03)
[2023-01-30] MEDS: GABAPENTIN 100 MG CAPSULE PO SCH ×2 (06:01→13:03)
[2023-01-30] MEDS ORDERED: LEVOTHYROXINE NA 100 MCG TABLET (FP) PO SCH (07:00)
[2023-01-30 07:43] LABS: BASO % 0.6 % (0-2.0); EOS % 2.5 % (0-4.5); HEMATOCRIT 38.7 % (32.4-45.2); HEMOGLOBIN 13.4 GM/dL (10.7-15.3); LYMPH % 15.8 % (8-40); MCH 31.2 pg (25.7-33.7); MCHC 34.7 g/dl (32.0-36.0); MEAN PLT VOLUME 11.4 fl (7.5-11.1); MONO % 7.9 % (3.8-10.2); NEUT % 73.2 % (42.8-82.8); PLATELET COUNT 209 10^3/uL (134-434); RDW 14.1 % (11.6-15.6); WHITE BLOOD COUNT 10.4 K/mm3 (4.0-10.0)
[2023-01-30 07:57] LABS: POTASSIUM 4.4 mmol/L (3.5-5.1)
[2023-01-30 07:59] LABS: BLOOD UREA NITROGEN 29.5 mg/dL (7-18)
[2023-01-30 08:02] LABS: CREATININE 0.9 mg/dL (0.55-1.3)
[2023-01-30] MEDS: MAGNESIUM OXIDE 400 MG TABLET (FP) PO SCH (09:36)
[2023-01-30] MEDS ORDERED: ENOXAPARIN NA (PORCINE) 40 MG/0.4 ML DISP.SYRIN SQ SCH (10:00)
[2023-01-30] MEDS ORDERED: amLODIPine BESYLATE 10 MG TABLET (FP) PO SCH (10:00)
[2023-01-30] MEDS ORDERED: CEFTRIAXONE 1 GM in DEXTROSE 5%-WATER - 50 ML IVPB SCH (10:00)
[2023-01-30] MEDS ORDERED: CEFUROXIME AXETIL 250 MG TABLET PO SCH (10:00)
[2023-01-30] MEDS ORDERED: POLYETHYLENE GLYCOL (HEALTHYLAX) 3350 17 GM PACKET PO SCH (10:00)
[2023-01-30] MEDS ORDERED: CHOLECALCIFEROL (VIT D3) 1,000 UNIT (25 MCG) TABLET PO SCH (10:00)
[2023-01-30] MEDS ORDERED: PANTOPRAZOLE 40 MG TABLET PO SCH (10:00)
[2023-01-30 14:09] VITALS: BP 139/76; PULSE 75; TEMP 98
== END 2023-01-30 14:05 | disposition home or self-care (01) | DRG 689 ==
LOC: JER 17:25 → JERBED 19:52 → OBSVTOIN 20:05 → J4S 21:06 → J7W 01-29 16:30
PROVIDERS: ADMIT Internal Medicine; ATTEND Internal Medicine
DX: N39.0 Urinary tract infection, site not specified (principal); G92.8 Other toxic encephalopathy; E87.1 Hypo-osmolality and hyponatremia; I50.32 Chronic diastolic (congestive) heart failure; R47.81 Slurred speech; E03.9 Hypothyroidism, unspecified; E78.5 Hyperlipidemia, unspecified; D72.829 Elevated white blood cell count, unspecified; I11.0 Hypertensive heart disease with heart failure; K59.00 Constipation, unspecified; F41.9 Anxiety disorder, unspecified
CPT/HCPCS: 0241U-QW; 36415; 70450-TC; 71046-TC-FY; 80048; 80053; 80061; 81003; 82550; 83036; 84443; 84481; 84484; 85025; 85610; 85730; 86850; 86900; 86901; 87040; 87086; 93005; 93010; 93306-TC; 97010-GP; 97110-GP; 97116-GP; 97161-GP; 99285-25; G0378

== ENCOUNTER 2023-03-04 09:12 | Inpatient (IN) | payer OTHER, BC ==
[2023-03-04] MEDS ORDERED: CEFTRIAXONE 1,000 MG in DEXTROSE 5%-WATER - 50 ML IVPB ONE (10:11)
[2023-03-04 10:40] LABS: VENOUS BASE EXCESS 0.7 mmol/L (-2-2); VENOUS O2 SATURATION 55.1 % (70-80); VENOUS PCO2 43.1 mmHg (38-52); VENOUS PH 7.395 (7.310-7.410)
[2023-03-04] MEDS ORDERED: ACETAMINOPHEN 1000 MG/100 ML BAG IVPB ONE (10:44)
[2023-03-04] MEDS ORDERED: SODIUM CHLORIDE 0.9% 500 ML INFUS.BAG IV ONE (10:44)
[2023-03-04] MEDS ORDERED: CEFTRIAXONE 1 GM/50 ML BAG ONE (10:44)
[2023-03-04 10:50] LABS: BASO % 0.3 % (0-2.0); EOS % 4.1 % (0-4.5); HEMATOCRIT 38.6 % (32.4-45.2); HEMOGLOBIN 12.9 GM/dL (10.7-15.3); INR 0.96 (0.83-1.09); MCHC 33.5 g/dl (32.0-36.0); MEAN CELL VOLUME 89.6 fl (80-96); MEAN PLT VOLUME 11.5 fl (7.5-11.1); MONO % 7.6 % (3.8-10.2); PLATELET COUNT 206 10^3/uL (134-434); PROTHROMBIN TIME (PATIENT) 11.1 SEC (9.7-13.0); RBC 4.31 M/mm3 (3.60-5.2); RDW 13.4 % (11.6-15.6); WHITE BLOOD COUNT 12.6 K/mm3 (4.0-10.0)
[2023-03-04 10:52] LABS: ACTIVATED PTT 27.4 SECONDS (25.2-36.5)
[2023-03-04] MEDS ORDERED: ACETAMINOPHEN INJECTION 100 ML IVPB ONE (10:53)
[2023-03-04 11:05] LABS: POTASSIUM 4.1 mmol/L (3.5-5.1)
[2023-03-04 11:10] LABS: CALCIUM 10.2 mg/dL (8.5-10.1)
[2023-03-04 11:11] LABS: ALBUMIN 3.5 g/dl (3.4-5.0); BLOOD UREA NITROGEN 17.4 mg/dL (7-18)
[2023-03-04 11:14] LABS: CREATININE 0.8 mg/dL (0.55-1.3)
[2023-03-04 11:15] LABS: BILIRUBIN,TOTAL 0.6 mg/dL (0.2-1); TOT PROT 6.9 g/dl (6.4-8.2)
[2023-03-04 11:41] LABS: EPI CELLS 4 /uL (0-25.1); HYALINE CASTS 0 /uL (0-3.1); PH,URINE 7.5 (5.0-8.0); URINE APPEARANCE CLEAR; URINE BACTERIA 382 /uL (0-1359); URINE BILIRUBIN NEGATIVE (NEGATIVE); URINE COLOR YELLOW; URINE GLUCOSE (UA) NEGATIVE (NEGATIVE); URINE KETONE NEGATIVE (NEGATIVE); URINE LEUK ESTERASE NEGATIVE (NEGATIVE); URINE NITRITE NEGATIVE (NEGATIVE); URINE PROTEIN 2+ (NEGATIVE); URINE RBC 8 /uL (0-23.9); URINE UROBILINOGEN 0.2 mg/dL (0.2-1.0); URINE WBC 1 /uL (0-25.8)
[2023-03-04 12:07] LABS: EPI CELLS 5 /uL (0-25.1); HYALINE CASTS 0 /uL (0-3.1); PH,URINE 7.5 (5.0-8.0); URINE APPEARANCE CLEAR; URINE BACTERIA 3 /uL (0-1359); URINE BILIRUBIN NEGATIVE (NEGATIVE); URINE COLOR YELLOW; URINE GLUCOSE (UA) NEGATIVE (NEGATIVE); URINE KETONE NEGATIVE (NEGATIVE); URINE LEUK ESTERASE NEGATIVE (NEGATIVE); URINE NITRITE NEGATIVE (NEGATIVE); URINE PROTEIN 2+ (NEGATIVE); URINE RBC 6 /uL (0-23.9); URINE UROBILINOGEN 0.2 mg/dL (0.2-1.0); URINE WBC 1 /uL (0-25.8)
[2023-03-04] MEDS ORDERED: LORazepam 2 MG/ML SDV VIAL IVPUSH ONE (12:58)
[2023-03-04] MEDS ORDERED: LORazepam 2 MG/ML SDV VIAL IVPUSH PRN (14:41)
[2023-03-04] MEDS ORDERED: ACETAMINOPHEN 325 MG TABLET (FP) PO PRN (15:02)
[2023-03-04] MEDS ORDERED: DOCUSATE SODIUM 100 MG CAPSULE (FP) PO ONE (17:19)
[2023-03-04] MEDS ORDERED: PANTOPRAZOLE 40 MG TABLET PO ONE (17:19)
[2023-03-04] MEDS ORDERED: ENOXAPARIN NA (PORCINE) 40 MG/0.4 ML DISP.SYRIN SQ ONE (17:20)
[2023-03-04] MEDS: ENOXAPARIN NA (PORCINE) 40 MG/0.4 ML DISP.SYRIN SQ SCH (17:26)
[2023-03-04] MEDS: LACTATED RINGERS SOLUTION 1,000 ML/1,000 ML INFUS.BAG IV SCH (17:26)
[2023-03-04] MEDS: DOCUSATE SODIUM 100 MG CAPSULE (FP) PO SCH ×2 (17:26→21:56)
[2023-03-04] MEDS: PANTOPRAZOLE 40 MG TABLET PO SCH (17:27)
[2023-03-04 18:26] VITALS: BMI 28.7
[2023-03-04] MEDS: ATORVASTATIN CA 40 MG TABLET (FP) PO SCH (21:56)
[2023-03-04] MEDS: ALPRAZolam 0.25 MG TABLET PO SCH (21:56)
[2023-03-04] MEDS: GABAPENTIN 100 MG CAPSULE PO SCH (21:56)
[2023-03-04] MEDS ORDERED: MAGNESIUM HYDROX 2400MG/30ML ORAL SUSPENSION 30 ML CUP PO SCH (22:00)
[2023-03-05] MEDS: DOCUSATE SODIUM 100 MG CAPSULE (FP) PO SCH ×3 (06:17→23:02)
[2023-03-05] MEDS: LEVOTHYROXINE NA 100 MCG TABLET (FP) PO SCH (06:19)
[2023-03-05 07:37] LABS: BASO % 0.3 % (0-2.0); EOS % 7.8 % (0-4.5); HEMOGLOBIN 12.4 GM/dL (10.7-15.3); LYMPH % 14.7 % (8-40); MCH 30.7 pg (25.7-33.7); MCHC 34.6 g/dl (32.0-36.0); MEAN CELL VOLUME 88.6 fl (80-96); MONO % 8.9 % (3.8-10.2); NEUT % 68.3 % (42.8-82.8); PLATELET COUNT 199 10^3/uL (134-434); RBC 4.06 M/mm3 (3.60-5.2); RDW 13.6 % (11.6-15.6)
[2023-03-05 08:02] LABS: POTASSIUM 3.6 mmol/L (3.5-5.1)
[2023-03-05 08:05] LABS: BLOOD UREA NITROGEN 13.6 mg/dL (7-18)
[2023-03-05 08:06] LABS: CALCIUM 9.6 mg/dL (8.5-10.1)
[2023-03-05 08:09] LABS: CREATININE 0.7 mg/dL (0.55-1.3)
[2023-03-05] MEDS ORDERED: POTASSIUM CHLORIDE ORAL LIQUID 20 MEQ/15 ML PO ONE (08:53)
[2023-03-05] MEDS ORDERED: METOPROLOL TARTRATE 50 MG TABLET (FP) PO SCH (10:00)
[2023-03-05] MEDS: CHOLECALCIFEROL (VIT D3) 1,000 UNIT (25 MCG) TABLET PO SCH (10:54)
[2023-03-05] MEDS: PANTOPRAZOLE 40 MG TABLET PO SCH (10:55)
[2023-03-05] MEDS: amLODIPine BESYLATE 5 MG TABLET (FP) PO SCH (10:55)
[2023-03-05] MEDS: CALCIUM (OYSTER SHELL) 500 MG TABLET (FP) PO SCH (10:55)
[2023-03-05] MEDS: MAGNESIUM OXIDE 400 MG TABLET (FP) PO SCH (10:55)
[2023-03-05] MEDS: POLYETHYLENE GLYCOL (HEALTHYLAX) 3350 17 GM PACKET PO SCH (10:55)
[2023-03-05] MEDS: ENOXAPARIN NA (PORCINE) 40 MG/0.4 ML DISP.SYRIN SQ SCH (10:55)
[2023-03-05] MEDS: METOPROLOL TARTRATE 25 MG, METOPROLOL TARTRATE 50 MG PO SCH ×2 (10:55→23:02)
[2023-03-05] MEDS: ALPRAZolam 0.25 MG TABLET PO SCH ×2 (10:55→23:02)
[2023-03-05] MEDS: LACTATED RINGERS SOLUTION 1,000 ML/1,000 ML INFUS.BAG IV SCH (19:50)
[2023-03-05] MEDS: ATORVASTATIN CA 40 MG TABLET (FP) PO SCH (23:02)
[2023-03-05] MEDS: GABAPENTIN 100 MG CAPSULE PO SCH (23:02)
[2023-03-06] MEDS: LEVOTHYROXINE NA 100 MCG TABLET (FP) PO SCH (06:11)
[2023-03-06] MEDS: DOCUSATE SODIUM 100 MG CAPSULE (FP) PO SCH ×3 (06:11→22:29)
[2023-03-06 09:30] LABS: BASO % 0.4 % (0-2.0); EOS % 7.6 % (0-4.5); HEMATOCRIT 38.4 % (32.4-45.2); HEMOGLOBIN 12.7 GM/dL (10.7-15.3); LYMPH % 21.2 % (8-40); MCH 30.2 pg (25.7-33.7); MEAN CELL VOLUME 91.6 fl (80-96); MEAN PLT VOLUME 10.9 fl (7.5-11.1); MONO % 8.7 % (3.8-10.2); NEUT % 62.1 % (42.8-82.8); PLATELET COUNT 239 10^3/uL (134-434); RBC 4.19 M/mm3 (3.60-5.2); RDW 13.7 % (11.6-15.6); WHITE BLOOD COUNT 9.4 K/mm3 (4.0-10.0)
[2023-03-06] MEDS: ENOXAPARIN NA (PORCINE) 40 MG/0.4 ML DISP.SYRIN SQ SCH (09:40)
[2023-03-06] MEDS: CHOLECALCIFEROL (VIT D3) 1,000 UNIT (25 MCG) TABLET PO SCH (09:41)
[2023-03-06] MEDS: ALPRAZolam 0.25 MG TABLET PO SCH ×2 (09:41→09:49)
[2023-03-06] MEDS: METOPROLOL TARTRATE 25 MG, METOPROLOL TARTRATE 50 MG PO SCH ×2 (09:41→22:29)
[2023-03-06] MEDS: MAGNESIUM OXIDE 400 MG TABLET (FP) PO SCH (09:41)
[2023-03-06] MEDS: PANTOPRAZOLE 40 MG TABLET PO SCH (09:42)
[2023-03-06] MEDS: CALCIUM (OYSTER SHELL) 500 MG TABLET (FP) PO SCH (09:42)
[2023-03-06] MEDS: POLYETHYLENE GLYCOL (HEALTHYLAX) 3350 17 GM PACKET PO SCH (09:45)
[2023-03-06 09:49] LABS: POTASSIUM 4.8 mmol/L (3.5-5.1)
[2023-03-06 09:51] LABS: BLOOD UREA NITROGEN 14.4 mg/dL (7-18); CALCIUM 10.2 mg/dL (8.5-10.1)
[2023-03-06 09:55] LABS: CREATININE 0.8 mg/dL (0.55-1.3)
[2023-03-06] MEDS: amLODIPine BESYLATE 5 MG TABLET (FP) PO SCH (12:10)
[2023-03-06] MEDS: LACTATED RINGERS SOLUTION 1,000 ML/1,000 ML INFUS.BAG IV SCH (14:44)
[2023-03-06] MEDS ORDERED: LORazepam 1 MG TABLET PO PRN (19:51)
[2023-03-06] MEDS: ATORVASTATIN CA 40 MG TABLET (FP) PO SCH (22:30)
[2023-03-06] MEDS: GABAPENTIN 100 MG CAPSULE PO SCH (22:30)
[2023-03-07] MEDS: LEVOTHYROXINE NA 100 MCG TABLET (FP) PO SCH (06:50)
[2023-03-07] MEDS: DOCUSATE SODIUM 100 MG CAPSULE (FP) PO SCH ×2 (06:50→13:01)
[2023-03-07 09:07] VITALS: BP 158/86; PULSE 78; RESP 18; TEMP 98.4
[2023-03-07] MEDS: METOPROLOL TARTRATE 25 MG, METOPROLOL TARTRATE 50 MG PO SCH (09:20)
[2023-03-07] MEDS: amLODIPine BESYLATE 5 MG TABLET (FP) PO SCH (09:21)
[2023-03-07] MEDS: ENOXAPARIN NA (PORCINE) 40 MG/0.4 ML DISP.SYRIN SQ SCH (09:21)
[2023-03-07] MEDS: MAGNESIUM OXIDE 400 MG TABLET (FP) PO SCH (09:21)
[2023-03-07] MEDS: PANTOPRAZOLE 40 MG TABLET PO SCH (09:21)
[2023-03-07] MEDS: POLYETHYLENE GLYCOL (HEALTHYLAX) 3350 17 GM PACKET PO SCH (09:21)
[2023-03-07] MEDS: CALCIUM (OYSTER SHELL) 500 MG TABLET (FP) PO SCH (09:21)
[2023-03-07] MEDS: CHOLECALCIFEROL (VIT D3) 1,000 UNIT (25 MCG) TABLET PO SCH (09:21)
[2023-03-07] MEDS ORDERED: MINERAL OIL ENEMA 133 ML ENEMA RC ONE (11:00)
[2023-03-07] MEDS ORDERED: POLYETHYLENE GLYCOL (HEALTHYLAX) 3350 17 GM PACKET PO SCH (22:00)
== END 2023-03-07 14:00 | DRG 312 ==
LOC: JER 09:12 → JERBED 13:39 → J7W 19:14
PROVIDERS: ADMIT Internal Medicine; ATTEND Internal Medicine
DX: I95.2 Hypotension due to drugs (principal); E87.1 Hypo-osmolality and hyponatremia; I10 Essential (primary) hypertension; E78.5 Hyperlipidemia, unspecified; E03.9 Hypothyroidism, unspecified; I87.2 Venous insufficiency (chronic) (peripheral); Z88.0 Allergy status to penicillin; T46.5X5A Adverse effect of other antihypertensive drugs, initial encounter; R26.81 Unsteadiness on feet; M62.81 Muscle weakness (generalized)
CPT/HCPCS: 0241U-QW; 36415; 71045-TC-FY; 80048; 80053; 81003; 82553; 82803; 83605; 84484; 85025; 85610; 85730; 86850; 86900; 86901; 87040; 87086; 93005; 93010; 97116-GP; 97161-GP; 99285-25

== ENCOUNTER 2023-07-22 03:54 | Day surgery (SDC) | payer OTHER, BC ==
[~2023-07-22 03:54] MED LIST: ACETAMINOPHEN 500 MG TABLET (FP) PO PRN
[2023-07-22] MEDS ORDERED: DEXAMETHASONE SOD PHOSPHATE 10 MG/1 ML VIAL ONE ×2 (07:07→10:35)
[2023-07-22] MEDS ORDERED: LIDOCAINE HCL/PF 1% SDV 5ML VIAL ONE ×2 (07:07→10:35)
[2023-07-22] MEDS ORDERED: ACETAMINOPHEN 500 MG TABLET (FP) PO PRN (08:41)
[2023-07-22 09:59] VITALS: RESP 18
[2023-07-22] MEDS ORDERED: TRIAMCINOLONE ACET 40MG/1ML VIAL ONE (10:34)
[2023-07-22] MEDS ORDERED: BUPIVACAINE HCL/PF 0.5% (5MG/ML) 10 ML VIAL ONE (10:35)
[2023-07-22] MEDS ORDERED: IOHEXOL 180 MG/1 ML ML IJ ONE (11:14)
[2023-07-22] MEDS ORDERED: LIDOCAINE 1% P/F 10 MG/ML VIAL INF ONE (11:15)
[2023-07-22] MEDS ORDERED: DEXAMETHASONE SOD PHOSPHATE 10 MG/1 ML VIAL IVPUSH ONE (11:15)
[2023-07-22 12:02] VITALS: TEMP 98.2
[2023-07-22 12:29] VITALS: BP 152/74; PULSE 82
== END 2023-07-22 12:10 | disposition home or self-care (01) ==
LOC: JASU-SURG 03:54
PROVIDERS: ATTEND Pain Medicine Pain Medicine
PROC: 3E0R3BZ Introduction of Anesthetic Agent into Spinal Canal, Percutaneous Approach (ICD-10-PCS; 2023-07-22)
PROC: 3E0R33Z Introduction of Anti-inflammatory into Spinal Canal, Percutaneous Approach (ICD-10-PCS; principal; 2023-07-22 11:00)
DX: M54.16 Radiculopathy, lumbar region (principal)
CPT/HCPCS: 76000-TC-FY; J1100

== ENCOUNTER 2023-10-31 11:40 | Inpatient (IN) | payer OTHER, BC ==
[2023-10-31 12:00] VITALS: BMI 27.4
[2023-10-31] MEDS ORDERED: oxyCODONE HCL 5 MG TABLET PO PRN (13:06)
[2023-10-31] MEDS ORDERED: ACETAMINOPHEN 325 MG TABLET (FP) PO PRN (13:06)
[2023-10-31] MEDS: ENOXAPARIN NA (PORCINE) 40 MG/0.4 ML DISP.SYRIN SQ SCH (13:33)
[2023-10-31] MEDS: LIDOCAINE 4% PATCH TP SCH (13:39)
[2023-10-31] MEDS: PANTOPRAZOLE 40 MG TABLET PO SCH (13:40)
[2023-10-31] MEDS: amLODIPine BESYLATE 5 MG TABLET (FP) PO SCH (13:40)
[2023-10-31] MEDS: CHOLECALCIFEROL (VIT D3) 1,000 UNIT (25 MCG) TABLET PO SCH (13:41)
[2023-10-31] MEDS: DOCUSATE SODIUM 100 MG CAPSULE (FP) PO SCH (13:41)
[2023-10-31] MEDS: GABAPENTIN 100 MG CAPSULE PO SCH (13:42)
[2023-10-31] MEDS: MULTIVITAMINS THER W-MINERALS COMBO TABLET (FP) PO SCH (13:42)
[2023-10-31] MEDS: CALCIUM (OYSTER SHELL) 500 MG TABLET (FP) PO SCH (13:42)
[2023-10-31] MEDS: oxyCODONE HCL 5 MG TABLET PO PRN (18:32)
[2023-10-31 18:43] LABS: BASO % 0.4 % (0-2.0); EOS % 4.8 % (0-4.5); HEMATOCRIT 36.5 % (32.4-45.2); HEMOGLOBIN 12.4 GM/dL (10.7-15.3); LYMPH % 14.9 % (8-40); MCH 30.1 pg (25.7-33.7); MCHC 33.9 g/dl (32.0-36.0); MEAN CELL VOLUME 88.9 fl (80-96); MEAN PLT VOLUME 10.6 fl (7.5-11.1); NEUT % 72.9 % (42.8-82.8); PLATELET COUNT 212 10^3/uL (134-434); RBC 4.11 M/mm3 (3.60-5.2); RDW 14.2 % (11.6-15.6)
[2023-10-31 19:00] LABS: POTASSIUM 4.1 mmol/L (3.5-5.1)
[2023-10-31 19:02] LABS: CALCIUM 9.5 mg/dL (8.5-10.1)
[2023-10-31 19:03] LABS: ALBUMIN 3.1 g/dl (3.4-5.0); BLOOD UREA NITROGEN 25.2 mg/dL (7-18)
[2023-10-31 19:07] LABS: BILIRUBIN,TOTAL 0.4 mg/dL (0.2-1); TOT PROT 6.5 g/dl (6.4-8.2)
[2023-10-31] MEDS: NEBIVOLOL 10 MG TABLET (FP) PO SCH (21:55)
[2023-10-31] MEDS: ATORVASTATIN CA 40 MG TABLET (FP) PO SCH (21:56)
[2023-10-31] MEDS: PRAMIPEXOLE DIHYDROCHLORIDE 0.25 MG TABLET PO SCH (21:56)
[2023-10-31] MEDS: LIDOCAINE PATCH REMOVAL MC SCH (21:56)
[2023-11-01] MEDS: LEVOTHYROXINE NA 100 MCG TABLET (FP) PO SCH (06:03)
[2023-11-01] MEDS: ACETAMINOPHEN 325 MG TABLET (FP) PO PRN (07:33)
[2023-11-01] MEDS: RAMIPRIL 5 MG CAPSULE PO SCH (09:39)
[2023-11-01] MEDS: POLYETHYLENE GLYCOL (HEALTHYLAX) 3350 17 GM PACKET PO SCH ×2 (09:39→21:46)
[2023-11-01] MEDS: MAGNESIUM OXIDE 400 MG TABLET (FP) PO SCH (09:40)
[2023-11-01] MEDS: BISACODYL 10 MG SUPP.RECT PR ONE (13:33)
[2023-11-02] MEDS: MINERAL OIL ENEMA 133 ML ENEMA RC ONE (08:15)
[2023-11-02] MEDS: MAGNESIUM HYDROX 2400MG/30ML ORAL SUSPENSION 30 ML CUP PO ONE (08:15)
[2023-11-02] MEDS: oxyCODONE HCL 5 MG TABLET PO PRN (09:03)
[2023-11-02] MEDS: MINERAL OIL 30 ML UNIT-DOSE CUP PO ONE (14:16)
[2023-11-02 22:09] VITALS: RESP 18
[2023-11-03] MEDS: MAGNESIUM HYDROX 2400MG/30ML ORAL SUSPENSION 30 ML CUP PO ONE (02:16)
[2023-11-03] MEDS: MINERAL OIL 30 ML UNIT-DOSE CUP PO ONE (02:24)
[2023-11-03] MEDS: METHYLNALTREXONE BROMIDE 8 MG/0.4 ML SYRINGE SQ SCH (02:24)
[2023-11-03] MEDS: LEVOTHYROXINE NA 100 MCG TABLET (FP) PO SCH (06:15)
[2023-11-03] MEDS: MINERAL OIL ENEMA 133 ML ENEMA RC ONE (06:18)
[2023-11-03] MEDS: ALPRAZolam 0.25 MG TABLET PO ONE (13:34)
[2023-11-03 23:51] VITALS: BP 109/48; PULSE 60; TEMP 98.1
[2023-11-04] MEDS ORDERED: METHYLNALTREXONE BROMIDE 8 MG/0.4 ML SYRINGE SQ SCH (10:00)
== END 2023-11-03 23:40 | DRG 536 ==
LOC: JER 11:40 → JERBED 12:32 → J7W 14:24
PROVIDERS: ADMIT Internal Medicine; ATTEND Internal Medicine
DX: S32.592A Other specified fracture of left pubis, initial encounter for closed fracture (principal); I10 Essential (primary) hypertension; E78.5 Hyperlipidemia, unspecified; E03.9 Hypothyroidism, unspecified; R26.2 Difficulty in walking, not elsewhere classified; G20.A1 Parkinson's disease without dyskinesia, without mention of fluctuations; I87.2 Venous insufficiency (chronic) (peripheral); G62.9 Polyneuropathy, unspecified; M54.9 Dorsalgia, unspecified; W18.39XA Other fall on same level, initial encounter; Y92.098 Other place in other non-institutional residence as the place of occurrence of the external cause; Z96.643 Presence of artificial hip joint, bilateral; Y99.9 Unspecified external cause status
CPT/HCPCS: 0241U-QW; 36415; 71101-TC-RT-FY; 73521-TC-FY; 73700-TC-RT; 80053; 85025; 93005; 93010; 97116-GP; 97163-GP; 99285-25

== ENCOUNTER 2024-04-09 10:05 | Inpatient (IN) | payer OTHER, BC ==
[2024-04-09 11:34] LABS: BASO % 0.5 % (0-2.0); EOS % 1.6 % (0-4.5); HEMATOCRIT 33.1 % (32.4-45.2); HEMOGLOBIN 11.3 GM/dL (10.7-15.3); LYMPH % 14.5 % (8-40); MCH 29.6 pg (25.7-33.7); MEAN CELL VOLUME 87.1 fl (80-96); MEAN PLT VOLUME 10.2 fl (7.5-11.1); MONO % 9.3 % (3.8-10.2); NEUT % 74.1 % (42.8-82.8); PLATELET COUNT 235 10^3/uL (134-434); RDW 14.4 % (11.6-15.6); WHITE BLOOD COUNT 10.3 K/mm3 (4.0-10.0)
[2024-04-09 11:43] LABS: POTASSIUM 4.9 mmol/L (3.5-5.1)
[2024-04-09 11:45] LABS: CALCIUM 9.8 mg/dL (8.5-10.1)
[2024-04-09 11:46] LABS: ALBUMIN 3.9 g/dl (3.4-5.0); MAGNESIUM 2.2 mg/dL (1.8-2.4)
[2024-04-09] MEDS ORDERED: CARBIDOPA/LEVODOPA 25/100 TABLET (FP) ONE (11:47)
[2024-04-09 11:48] LABS: CREATININE 0.8 mg/dL (0.55-1.3); INR 0.91 (0.83-1.09); PROTHROMBIN TIME (PATIENT) 10.5 SEC (9.7-13.0)
[2024-04-09 11:50] LABS: BILIRUBIN,TOTAL 0.7 mg/dL (0.2-1); TOT PROT 7.2 g/dl (6.4-8.2)
[2024-04-09 11:51] LABS: ACTIVATED PTT 33.6 SECONDS (25.2-36.5)
[2024-04-09 11:54] LABS: N-TERMINAL BNP 2318.9 pg/ml (5-450)
[2024-04-09] MEDS ORDERED: ACETAMINOPHEN 325 MG TABLET (FP) PO PRN (13:40)
[2024-04-09] MEDS: DOCUSATE SODIUM 100 MG CAPSULE (FP) PO SCH (16:03)
[2024-04-09 16:30] VITALS: BMI 30.7
[2024-04-09] MEDS: GABAPENTIN 100 MG CAPSULE PO SCH (16:38)
[2024-04-09] MEDS: PANTOPRAZOLE 40 MG TABLET PO SCH (16:38)
[2024-04-09] MEDS: POLYETHYLENE GLYCOL (HEALTHYLAX) 3350 17 GM PACKET PO SCH (16:38)
[2024-04-09] MEDS: ENOXAPARIN NA (PORCINE) 40 MG/0.4 ML DISP.SYRIN SQ SCH (16:38)
[2024-04-09] MEDS: CARBIDOP 37.5MG/LEVODOPA 150MG/ENTACAPONE 200MG TABLET PO SCH (18:32)
[2024-04-09] MEDS: NEBIVOLOL 5 MG TABLET (FP) PO SCH (21:14)
[2024-04-09] MEDS: ATORVASTATIN CA 40 MG TABLET (FP) PO SCH (21:14)
[2024-04-09] MEDS: PRAMIPEXOLE DIHYDROCHLORIDE 0.25 MG TABLET PO SCH (21:14)
[2024-04-09] MEDS: MELATONIN 5 MG TABLETS PO ONE (22:01)
[2024-04-10] MEDS: LEVOTHYROXINE NA 100 MCG TABLET (FP) PO SCH (06:07)
[2024-04-10 08:42] LABS: BASO % 0.8 % (0-2.0); EOS % 3.4 % (0-4.5); HEMATOCRIT 30.3 % (32.4-45.2); HEMOGLOBIN 10.4 GM/dL (10.7-15.3); MCH 29.9 pg (25.7-33.7); MCHC 34.2 g/dl (32.0-36.0); MEAN CELL VOLUME 87.5 fl (80-96); MEAN PLT VOLUME 10.3 fl (7.5-11.1); MONO % 8.8 % (3.8-10.2); PLATELET COUNT 214 10^3/uL (134-434); RBC 3.46 M/mm3 (3.60-5.2); RDW 14.6 % (11.6-15.6); WHITE BLOOD COUNT 7.7 K/mm3 (4.0-10.0)
[2024-04-10 08:51] LABS: POTASSIUM 4.6 mmol/L (3.5-5.1)
[2024-04-10 08:53] LABS: BLOOD UREA NITROGEN 20.8 mg/dL (7-18); CALCIUM 9.1 mg/dL (8.5-10.1)
[2024-04-10 08:56] LABS: CREATININE 0.8 mg/dL (0.55-1.3)
[2024-04-10] MEDS: MAGNESIUM OXIDE 400 MG TABLET (FP) PO SCH (10:51)
[2024-04-10] MEDS: FUROSEMIDE 40 MG/4 ML INJECTABLE VIAL IVPUSH SCH (10:52)
[2024-04-10] MEDS: CALCIUM (OYSTER SHELL) 500 MG TABLET (FP) PO SCH (10:52)
[2024-04-10] MEDS: CHOLECALCIFEROL (VIT D3) 1,000 UNIT (25 MCG) TABLET PO SCH (10:52)
[2024-04-10] MEDS: SODIUM CHLORIDE 1 GM TABLET PO SCH (10:53)
[2024-04-10] MEDS: MULTIVITAMINS THER W-MINERALS COMBO TABLET (FP) PO SCH (10:55)
[2024-04-10] MEDS ORDERED: MELATONIN 5 MG TABLETS PO PRN (11:01)
[2024-04-10] MEDS: FUROSEMIDE 40 MG/4 ML INJECTABLE VIAL IVPUSH ONE (17:11)
[2024-04-10] MEDS: MELATONIN 5 MG TABLETS PO PRN (22:12)
[2024-04-11 07:43] LABS: BASO % 0.7 % (0-2.0); EOS % 4.2 % (0-4.5); HEMATOCRIT 31.2 % (32.4-45.2); HEMOGLOBIN 10.9 GM/dL (10.7-15.3); LYMPH % 21.2 % (8-40); MCH 30.2 pg (25.7-33.7); MCHC 34.9 g/dl (32.0-36.0); MEAN CELL VOLUME 86.6 fl (80-96); MONO % 10.2 % (3.8-10.2); NEUT % 63.7 % (42.8-82.8); PLATELET COUNT 224 10^3/uL (134-434); RDW 14.2 % (11.6-15.6); WHITE BLOOD COUNT 7.3 K/mm3 (4.0-10.0)
[2024-04-11 08:11] LABS: ALBUMIN 3.3 g/dl (3.4-5.0); BLOOD UREA NITROGEN 23.6 mg/dL (7-18); CALCIUM 9.2 mg/dL (8.5-10.1)
[2024-04-11 08:15] LABS: CREATININE 0.9 mg/dL (0.55-1.3)
[2024-04-11 08:16] LABS: BILIRUBIN,TOTAL 0.6 mg/dL (0.2-1); TOT PROT 6.1 g/dl (6.4-8.2)
[2024-04-11] MEDS: FERROUS GLUCONATE 324 MG TAB (FP) PO SCH (14:06)
[2024-04-11] MEDS: FUROSEMIDE 40 MG/4 ML INJECTABLE VIAL IVPUSH ONE (18:50)
[2024-04-12 08:20] LABS: BASO % 0.7 % (0-2.0); EOS % 4.9 % (0-4.5); HEMATOCRIT 34.4 % (32.4-45.2); HEMOGLOBIN 11.9 GM/dL (10.7-15.3); LYMPH % 22.1 % (8-40); MCH 29.7 pg (25.7-33.7); MCHC 34.5 g/dl (32.0-36.0); MEAN CELL VOLUME 86.1 fl (80-96); MEAN PLT VOLUME 9.8 fl (7.5-11.1); MONO % 9.5 % (3.8-10.2); NEUT % 62.8 % (42.8-82.8); PLATELET COUNT 276 10^3/uL (134-434); RDW 14.2 % (11.6-15.6); WHITE BLOOD COUNT 7.2 K/mm3 (4.0-10.0)
[2024-04-12 08:36] LABS: ALBUMIN 3.7 g/dl (3.4-5.0); BLOOD UREA NITROGEN 23.6 mg/dL (7-18); CALCIUM 9.8 mg/dL (8.5-10.1)
[2024-04-12 08:39] LABS: CREATININE 0.9 mg/dL (0.55-1.3)
[2024-04-12 08:41] LABS: BILIRUBIN,TOTAL 0.6 mg/dL (0.2-1); TOT PROT 6.8 g/dl (6.4-8.2)
[2024-04-12 16:21] LABS: EPI CELLS >36 /uL (0-25.1); HYALINE CASTS 1 /uL (0-3.1); URINE APPEARANCE CLEAR; URINE BACTERIA 2169 /uL (0-1359); URINE BILIRUBIN NEGATIVE (NEGATIVE); URINE COLOR DK YELLOW; URINE GLUCOSE (UA) NEGATIVE (NEGATIVE); URINE KETONE NEGATIVE (NEGATIVE); URINE LEUK ESTERASE NEGATIVE (NEGATIVE); URINE NITRITE NEGATIVE (NEGATIVE); URINE PROTEIN 2+ (NEGATIVE); URINE RBC 5 /uL (0-23.9); URINE UROBILINOGEN 0.2 mg/dL (0.2-1.0); URINE WBC 4 /uL (0-25.8)
[2024-04-12] MEDS: FUROSEMIDE 40 MG/4 ML INJECTABLE VIAL IVPUSH ONE (17:23)
[2024-04-13 01:34] VITALS: RESP 18
[2024-04-13 07:18] VITALS: BP 146/53; PULSE 103; TEMP 98.4
[2024-04-13 08:03] LABS: BASO % 0.9 % (0-2.0); HEMATOCRIT 36.4 % (32.4-45.2); HEMOGLOBIN 12.2 GM/dL (10.7-15.3); LYMPH % 19.9 % (8-40); MCH 29.5 pg (25.7-33.7); MCHC 33.6 g/dl (32.0-36.0); MEAN CELL VOLUME 87.9 fl (80-96); MEAN PLT VOLUME 9.8 fl (7.5-11.1); MONO % 9.5 % (3.8-10.2); NEUT % 64.7 % (42.8-82.8); PLATELET COUNT 280 10^3/uL (134-434); RBC 4.14 M/mm3 (3.60-5.2); RDW 14.7 % (11.6-15.6); WHITE BLOOD COUNT 7.8 K/mm3 (4.0-10.0)
[2024-04-13 08:27] LABS: POTASSIUM 3.7 mmol/L (3.5-5.1)
[2024-04-13 08:43] LABS: ALBUMIN 3.7 g/dl (3.4-5.0); BLOOD UREA NITROGEN 28.4 mg/dL (7-18); CALCIUM 10.1 mg/dL (8.5-10.1)
[2024-04-13 08:47] LABS: CREATININE 0.9 mg/dL (0.55-1.3)
[2024-04-13] MEDS ORDERED: FUROSEMIDE 40 MG TABLET (FP) PO SCH (11:59)
[2024-04-14] MEDS ORDERED: FUROSEMIDE 40 MG TABLET (FP) PO SCH (10:00)
== END 2024-04-13 18:41 | disposition home or self-care (01) | DRG 291 ==
LOC: JER 10:05 → JERBED 12:54 → J4S 14:33 → J7W 04-13 00:21
PROVIDERS: ADMIT Internal Medicine; ATTEND Internal Medicine
DX: I11.0 Hypertensive heart disease with heart failure (principal); I50.33 Acute on chronic diastolic (congestive) heart failure; E87.1 Hypo-osmolality and hyponatremia; E78.5 Hyperlipidemia, unspecified; I87.2 Venous insufficiency (chronic) (peripheral); E03.9 Hypothyroidism, unspecified; I27.20 Pulmonary hypertension, unspecified; G20.A1 Parkinson's disease without dyskinesia, without mention of fluctuations; R00.0 Tachycardia, unspecified; K59.00 Constipation, unspecified; R53.81 Other malaise; M62.81 Muscle weakness (generalized); G62.9 Polyneuropathy, unspecified; M25.561 Pain in right knee; M25.562 Pain in left knee; I34.0 Nonrheumatic mitral (valve) insufficiency; G25.81 Restless legs syndrome; R26.81 Unsteadiness on feet
CPT/HCPCS: 0241U-QW; 36415; 71045-TC-FY; 80048; 80053; 81003; 82728; 83540; 83550; 83735; 83880; 84443; 84484; 85025; 85610; 85730; 93005; 93010; 93306-TC; 93970-TC; 97116-GP; 97161-GP; 99285-25